=== PATIENT | female | born 1955 | race Caucasian/White ===

== ENCOUNTER 2020-02-19 06:17 | Outpatient (CLI) | payer OTHER, SELFPAY ==
[2020-02-19 18:34] LABS: SARS-CoV-2 RNA PCR Negative
== END 2020-02-19 06:18 | disposition home or self-care (01) ==
LOC: ANHCOVIDDT 06:19
PROVIDERS: Visit Provider Internal Medicine Gastroenterology
DX: Z01.818 Encounter for other preprocedural examination (principal); Z11.59 Encounter for screening for other viral diseases
CPT/HCPCS: 87635; C9803; U0003

== ENCOUNTER 2020-02-21 03:02 | Day surgery (SDC) | payer OTHER, SELFPAY ==
[2020-02-18 09:20] VITALS: BMI 27.5
[2020-02-21 09:02] VITALS: BP 120/75; PULSE 69; RESP 16; TEMP 36.4; O2SAT 99
--- NOTE | 2020-02-21 09:05 | P.PNAN_ITS ---
Anes - Initial Pre Proc Eval Procedure: Operation Date: 02/21/20 09:30 Proposed Procedures p Screening Colonoscopy - Dima Pelaez MD Date/Time: 02/21/20 09:05 Surgeon: Dima Pelaez MD Pre Op Diagnosis: Neoplasm Screening Patient Data Age: 64 Gender: F Height: 5 ft 5 in Weight: 76.1 kg Last Vital Signs Temp 36.4 C 02/21/20 09:02 Pulse 69 02/21/20 09:02 Resp 16 02/21/20 09:02 BP 120/75 02/21/20 09:02 Pulse Ox 99 02/21/20 09:02 Allergies Allergy/AdvReac Type Severity Reaction Status Date / Time No Known Allergies Allergy Unknown Verified 02/18/20 09:09 Home Medications Medication Instructions Recorded Confirmed Type cholecalciferol (vitamin D3) 10 mcg PO DAILY 02/18/20 02/18/20 History [Vitamin D3] Patient hx anesthesia problems: none Family hx anesthesia problems: none [facility] Past Medical History Medical History (Updated 02/21/20 @ 09:05 by Seth Baum MD) Overweight Anes - Eval Final PreProcedure Day of Procedure 02/21/20 09:05 Patient weight: overweight Heart: regular rate and rhythm Lungs: clear to auscultation Airway: Mallampati scale class II Neurological: alert and oriented Last oral intake: >/= 8 hours ASA classification: II Emergent: no Anesthetic plan: proceed Anesthesia type and monitoring: general GIVS and standard monitoring Informed Consent: The patient's anesthetic plan and its attendant risks and benefits were discussed with the patient/family/POA. Questions were solicited and answers provided to the satisfaction of the patient/family/POA.
[2020-02-21] MEDS: LACTATED RINGERS 1,000 ML 150 ML IV CONT (09:06)
--- NOTE | 2020-02-21 09:24 | P.HP_ITS ---
History of Present Illness History of Present Illness Consent: Risks, benefits, and alternatives have been discussed and questions answered. Patient agrees to proceed with procedure. Chief complaint: Neoplasm Screening Narrative: Grecia Salaazr is a 64 year old W female Referred for screening colonoscopy. Patient states he had a colonoscopy 14 years ago which was normal. She is asymptomatic. No family history of colon polyps or colon cancer. [facility], [facility] Past Medical History Medical History (Updated 02/21/20 @ 09:05 by Seth Baum MD) Overweight Meds Home Medications and Allergies Home Medications Medication Instructions Recorded Confirmed Type cholecalciferol (vitamin D3) 10 mcg PO DAILY 02/18/20 02/18/20 History [Vitamin D3] Allergies Allergy/AdvReac Type Severity Reaction Status Date / Time No Known Allergies Allergy Unknown Verified 02/18/20 09:09 Vital Signs Vital Signs - 24 hr 02/21/20 09:02 Temperature 36.4 C Pulse Rate 69 Respiratory Rate 16 Blood Pressure 120/75 Pulse Oximetry 99 Exam Const: Orientation/consciousness: patient oriented x3 Resp: Auscultation: clear to auscultation bilaterally Cardio: Rate: regular rate Rhythm: regular rhythm Heart sounds: no murmurs GI: GI Palp: Yes Soft to palpation, No Tenderness to palpation present (GI), Yes No hepatosplenomegaly present and No Palpable mass present Auscultation: normal bowel sounds Neuro: General: patient oriented x3 and no focal motor deficits Extrem: General: no pedal edema Assessment and Plan Additional Plan Screening colonoscopy in average risk patient
[2020-02-21 10:20] VITALS: BP 89/56; PULSE 63; RESP 14; O2SAT 98
[2020-02-21 10:30] VITALS: BP 93/55; PULSE 63; RESP 15; O2SAT 98
[2020-02-21 10:40] VITALS: BP 100/68; PULSE 64; RESP 15; O2SAT 99
== END 2020-02-21 10:50 | disposition home or self-care (01) ==
PROVIDERS: PCP Family Medicine; Visit Provider Internal Medicine Gastroenterology
PROC: 0DJD8ZZ Inspection of Lower Intestinal Tract, Via Natural or Artificial Opening Endoscopic (ICD-10-PCS; CPT 45378; principal; 2020-02-21 09:30)
DX: Z12.11 Encounter for screening for malignant neoplasm of colon (principal); K64.1 Second degree hemorrhoids; K64.4 Residual hemorrhoidal skin tags
CPT/HCPCS: 45378; J2704; J7120

== ENCOUNTER 2025-04-18 11:49 | Outpatient (CLI) | payer MEDICARE, OTHER, SELFPAY ==
--- OUTSIDE RECORDS SUMMARY | 2025-04-18 11:57 | XMS_ITS | Data Portability ---
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 She states her knee really does not hurt all that much most of the time unless she tries to overdo it then she will have some throbbing and aching. We talked about oral medication certainly this could be helpful let her be a little more active. She would like to try 1 month course of meloxicam will get her set up with this she declined cortisone or further hyaluronic acid. She wants to see how the medication works. I have told her if this does not give her the relief she is looking for then she can either live with it or consider surgical intervention she thinks for the most part she can live with it for a while as the pain is not severe or severely limiting. She voiced understanding agrees above plan I will see her back as needed she will call for any further problems difficulties or questions. She will let us know in 1 month whether not the medication is working if it is working we will give her a refill if not she can discontinue it. [email or web address] Not available 10/25/2023 09:53:25 12/05/2023 12/05/2023 68-year-old female presents for evaluation of her left knee. She has a history of knee osteoarthritis and was previously being seen by Dr. Holder and Jaime ALEXANDER. she has been treated conservatively with physical therapy, cortisone injection, and gel injection. She did not take meloxicam because she does not like to take pills. She also has a history of a tibial plateau fracture fixed with 2 screws in 2007. She reports having minimal pain. She is able to walk and hike up to a mi before the pain limits her. She does report having some feelings of stiffness in the knee, and states that her complains about her walking and has had a TKA, so recommended she get 1 as well. Review of systems per patient questionnaire Physical exam: Nonantalgic gait. She has some tenderness over the medial and lateral joint line. Range of motion 0-130, pain in terminal flexion. positive Juan Pablo's. Stable ligaments. X-rays of the knee were reviewed, demonstrating degenerative changes with joint space narrowing and small osteophytes over the medial compartment. She has a healed lateral tibial plateau fracture with 2 screws with washers in place. She does have knee arthritis, both osteoarthritis and posttraumatic arthritis, but right now she reports she has minimal pain. As such, we discussed that she does not necessarily need surgery, but may continue conservative management if she is okay with her condition right now. She wants some time to think about it. We gave her a set of knee home exercise programs continue doing, and also Voltaren gel written down since she does not like taking oral anti-inflammatori es. She will take some time to think about it and call us back, follow-up p.r.n.. [email or web address] Not available 12/05/2023 13:33:51 Plan of Treatment Reminders Order Date Submit Date Provider Last Modified By Organization Details Last Modified Time Details Appointments None recorded. Lab lipid panel, serum [address] (Lab), [address] [place], [address], 4 08:08:46 TSH, serum or plasma [address] (Lab), [address] [place], [address], 4 08:08:46 CBC 2023 024 [email or web address] (Lab), [address] [place], [address], 4 08:08:46 glycohemog lobin, total, blood 2023 024 [email or web address] (Lab), [address] [place], [address], 4 08:08:46 [facility], [facility] or [facility] [address] [place], [address], 23:36:52 Referral None recorded. Procedures None recorded. Surgeries None recorded. Imaging None recorded. Medication Orders meloxicam 15 mg tablet 2023 024 [email or web address] [id number], [address] [place], [address], 4 10:54:50 Patient TargetsNo targets recorded. Patient Instructions Encounter Date Encounter Id Patient Instructions Last Modified By Organization Details Last Modified Time 03/08/2024 [id number] dementia rating scale-2* [email or web address] Not available 03/08/2024 08:41:09 multi-dimensiona l health assessment questionnaire* Not available 03/08/2024 08:41:12 care plan* Not available 03/08 08:20:23 advance directiv es: care instructions Not available 03/08/2024 08:20:22 advance care planning: care instructions Not available 03/08/2024 08:20:22 [place] Advance Directives Not available 03/08/2024 08:20:23 Personalized [facility] Plan and Screening Recommendations Advance Directives - Do you have one? No Advance Directives - Do we have your advance directive on file in your health record? Primary Prevention/Interven tion (prevents or decreases the chance of common diseases from occurring) Smoking Risk: Non Smoker Alcohol Misuse Screening: Negative Weight: Overweight Physical activity: Need more exercise/physical activity Nutrition: Average Fall Risk (screened today): Low Vaccines Pneumococcal: Recommended today, but you have declined Influenza: Your next one in the fall of this year Chronic Disease Risks Stroke: Low Risk Active diagnosis, Continue current treatment plan Heart Attack: Low risk Active diagnosis, Continue current treatment plan Clogging of the Arteries: Low risk Active diagnosis, Continue current treatment plan Diabetes: Low Risk Active diagnosis, Continue current treatment plan Secondary Prevention/Interven tion (detects treatable diseases before they may cause symptoms, disability, or ) Breast Cancer Screening with mammogram: Recommended today, but you have declined Cervical/Uterine/Ov wilma Cancer Screening: Recommended today, but you have declined Osteoporosis Screening: Recommended today, but you have declined Date Screening Last Performed: Colon Cancer Screening: Colonoscopy Recommended today, but you have declined Date Screening Last Performed: Eye Disease Screening: Recommended today Dementia Risk: Low Depression Screening: Negative Not available 03/08/2024 08:16:18 Reason for Referral None Reported. Results Created Date Observation Date Name Description Value Unit Range Abnormal Flag Note LastModifiedBy Organization Detail LastModifiedTime 09/23/2009/23/2023 URINA LYSIS COMPL ETE/I RIS W/RFX color DARK-Y ELLOW Not Available [facility] (Lab) [address] [place], [address], 09/23/2023 19:46:38 09/23/20 23 09/23/2023 URINA LYSIS COMPL ETE/I RIS W/RFX appear EXTRA TURBID abnormal Not Available [facility] (Lab) [address] [place], [address], 09/23/2023 19:46:38 09/23/20 23 09/23/2023 URINA LYSIS COMPL ETE/I RIS W/RFX specific gravity 1.019 1.001- 1.030 Not Available [facility] (Lab) [address] [place], [address], 09/23/2023 19:46:38 09/23/20 23 09/23/2023 URINA LYSIS COMPL ETE/I RIS W/RFX pH 5.0 pH_un its 5.0-9. 0 Not Available [facility] (Lab) [address] [place], [address], 09/23/2023 19:46:38 09/23/20 23 09/23/2023 URINA LYSIS COMPL ETE/I RIS W/RFX leukocytes >/=500 rosalino/u L negati ve- abnormal Not Available [facility] (Lab) [address] [place], [address], 09/23/2023 19:46:38 09/23/20 23 09/23/2023 URINA LYSIS COMPL ETE/I RIS W/RFX nitrite NEGATI VE negati ve- Not Available [facility] (Lab) [address] [place], [address], 09/23/2023 19:46:38 09/23/20 23 09/23/2023 URINA LYSIS COMPL ETE/I RIS W/RFX protein 50 mg/dL negati ve- abnormal Not Available [facility] (Lab) [address] [place], [address], 09/23/2023 19:46:38 09/23/20 23 09/23/2023 URINA LYSIS COMPL ETE/I RIS W/RFX glucose NORMAL mg/dL normal - Not Available [facility] (Lab) [address] [place], [address], 09/23/2023 19:46:38 09/23/20 23 09/23/2023 URINA LYSIS COMPL ETE/I RIS W/RFX ketones NEGATI VE mg/dL negati ve- Not Available [facility] (Lab) [address] [place], [address], 09/23/2023 19:46:38 09/23/20 23 09/23/2023 URINA LYSIS COMPL ETE/I RIS W/RFX urobilinogen NORMAL mg/dL normal - Not Available [facility] (Lab) [address] [place], [address], 09/23/2023 19:46:38 09/23/20 23 09/23/2023 URINA LYSIS COMPL ETE/I RIS W/RFX bilirubin NEGATI VE mg/dL negati ve- Not Available [facility] (Lab) [address] [place], [address], 09/23/2023 19:46:38 09/23/20 23 09/23/2023 URINA LYSIS COMPL ETE/I RIS W/RFX blood >/=1.0 mg/dL negati ve- abnormal Not Available [facility] (Lab) [address] [place], [address], 09/23/2023 19:46:38 09/23/20 23 09/23/2023 URINA LYSIS COMPL ETE/I RIS W/RFX white blood cells PACKED /i??h pfi?? 0-8 abnormal Not Available [facility] (Lab) [address] [place], [address], 09/23/2023 19:46:38 09/23/20 23 09/23/2023 URINA LYSIS COMPL ETE/I RIS W/RFX white blood cell clumps PACKED FIELD /i??h pfi?? none seen- abnormal Not Available [facility] (Lab) [address] [place], [address], 09/23/2023 19:46:38 09/23/20 23 09/23/2023 URINA LYSIS COMPL ETE/I RIS W/RFX red blood cells 81-100 /i??h pfi?? 0-4 abnormal Not Available [facility] (Lab) [address] [place], [address], 09/23/2023 19:46:38 09/23/20 23 09/23/2023 URINA LYSIS COMPL ETE/I RIS W/RFX bacteria NONE Not Available [facility] (Lab) [address] [place], [address], 09/23/2023 19:46:38 09/23/20 23 09/23/2023 URINA LYSIS COMPL ETE/I RIS W/RFX squamous epithelial NONE /i??l pfi?? abnormal Not Available [facility] (Lab) [address] [place], [address], 09/23/2023 19:46:38 09/23/20 23 09/23/2023 CULTU RE URINE urc ===== ===== ===== ===== ===== ===== ===== ===== ===== ===== ===== ===== ===== ===== ===== ===== ===== ===== ===== ===== ===== ===== ===== ===== CULTU RE NO.: [id number] Exam Statu s: Final Exam Type: CULTU RE URINE ===== ===== ===== ===== ===== ===== ===== ===== ===== ===== ===== ===== ===== ===== ===== ===== ===== ===== ===== ===== ===== ===== ===== ===== Cultu re Repor t: Organ ism #01 Esche tierra a coli (escc ol) Antib iotic s escco l Achie vable Achie vable (01) Dosag e Serum Level Urine Level mcg/m l mcg/m l Mary kristen <=2 S 021T Ampic illin >=32 R 021T Ampic illin /Sulb actam >=32 R 021T Cefaz hailey 16 I 021T Cefep leann <=1 S 021T Cefox itin <= 4 S 021T Ceftr iaxon e <=1 S 021T Cipro floxa kristen <=0.2 5 S 021T ESBL NEG - 021T Genta micin >=16 R 021T Levof loxac in <=0.1 2 S 021T Merop enem <=0.2 5 S 021T Nitro furan toin <=16 S 000T Piper acill in./T azaba <=4 S 021T Tobra mycin 8 I 021T Trmet hopri m.Sul fa >=320 R 021T rt - Test Card Code AST-G N 021T o2 - Final Organ ism ESCHE R 021T af - Antib iotic Fami TRIME T 021T af - Antib iotic Famil y Na ap - Pheno type Name RESIS T 021T ap - Pheno type Name Not Available [facility] (Lab) [address] [place], [address], 09/26/2023 08:03:27 09/23/20 23 09/23/2023 urina lysis , dipst ick Leukocytes (reference range: negative rosalino/ l) Large Not Available [address], [address], 09/23/2023 10:17:48 09/23/20 23 09/23/2023 urina lysis , dipst ick Nitrite (reference rage: negative mg/dl) negati ve Not Available [address], [place], [address], 09/23/2023 10:17:48 09/23/20 23 09/23/2023 urina lysis , dipst ick Urobilinogen (reference range: 0.2-1 mg/dl) 1 Not Available [address], [place], [address], 09/23/2023 10:17:48 09/23/20 23 09/23/2023 urina lysis , dipst ick Protein (reference range: negative mg/dl) Large Not Available [address], [place], [address], 09/23/2023 10:17:48 09/23/20 23 09/23/2023 urina lysis , dipst ick pH (reference range: 5-7) 5.0 Not Available [address], [place], [address], 09/23/2023 10:17:48 09/23/20 23 09/23/2023 urina lysis , dipst ick Blood (reference range: negative Carmelo/ l) Modera te Not Available [address], [place], [address], 09/23/2023 10:17:48 09/23/20 23 09/23/2023 urina lysis , dipst ick Specific [place] (reference range: 1.005-1.030) 1.030 Not Available [address], [place], [address], 09/23/2023 10:17:48 09/23/20 23 09/23/2023 urina lysis , dipst ick Ketone (reference range: negative mg/dl) Negati ve Not Available [address], [place], [address], 09/23/2023 10:17:48 09/23/20 23 09/23/2023 urina lysis , dipst ick Bilirubin (reference range: negative mg/dl) Negati ve Not Available [address], [place], [address], 09/23/2023 10:17:48 09/23/20 23 09/23/2023 urina lysis , dipst ick Glucose (reference range: negative mg/dl) Negati ve Not Available [address], [place], [address], 09/23/2023 10:17:48 09/23/20 23 09/23/2023 urina lysis , dipst ick Appearance Cloudy Not Available [address], [place], [address], 09/23/2023 10:17:48 09/23/2009/23/2023 urina lysis , dipst ick Color Yellow Not Available [address], [place], [address], 09/23/2023 10:17:48 05/22/20 24 05/22/2024 urina lysis , dipst ick Leukocytes (reference range: negative rosalino/ l) Large Not Available [address], [place], [address], 05/22/2024 12:18:24 05/22/20 24 05/22/2024 urina lysis , dipst ick Nitrite (reference rage: negative mg/dl) negati ve Not Available [address], [place], [address], 05/22/2024 12:18:24 05/22/20 24 05/22/2024 urina lysis , dipst ick Urobilinogen (reference range: 0.2-1 mg/dl) 0.2 Not Available [address], [place], [address], 05/22/2024 12:18:24 05/22/20 24 05/22/2024 urina lysis , dipst ick Protein (reference range: negative mg/dl) Large Not Available [address], [place], [address], 05/22/2024 12:18:24 05/22/20 24 05/22/2024 urina lysis , dipst ick pH (reference range: 5-7) 5.5 Not Available [address], [place], [address], 05/22/2024 12:18:24 05/22/20 24 05/22/2024 urina lysis , dipst ick Blood (reference range: negative Carmelo/ l) Large Not Available [address], [place], [address], 05/22/2024 12:18:24 05/22/20 24 05/22/2024 urina lysis , dipst ick Specific [place] (reference range: 1.005-1.030) 1.025 Not Available [address], [place], [address], 05/22/2024 12:18:24 05/22/20 24 05/22/2024 urina lysis , dipst ick Ketone (reference range: negative mg/dl) Negati ve Not Available [address], [place], [address], 05/22/2024 12:18:24 05/22/20 24 05/22/2024 urina lysis , dipst ick Bilirubin (reference range: negative mg/dl) Negati ve Not Available [address], [place], [address], 05/22/2024 12:18:24 05/22/20 24 05/22/2024 urina lysis , dipst ick Glucose (reference range: negative mg/dl) Negati ve Not Available [facility] [address], [place], [address], 05/22/2024 12:18:24 05/22/2005/22/2024 urina lysis , dipst ick Appearance Cloudy Not Available [address], [place], [address], 05/22/2024 12:18:24 05/22/20 24 05/22/2024 urina lysis , dipst ick Color Yellow Not Available [address], [place], [address], 05/22/2024 12:18:24 Result Notes None recorded. Problems Name Problem SNOMED Code Status Onset Date Resolution Date Notes Provider Name and Address Organization Details Recorded Time Pain in lower limb 94119424 Active 2018 Not Available [facility] 3 06:43:50 Wears glasses 064070976 Active 2018 Not Available [facility] 3 06:43:50 Leukorrhea 729596151 Active Not Available [facility] 3 06:43:50 External hemorrhoid s 24907107 Active Not Available [facility] 3 06:43:50 Headache 65458934 Active 2018 Not Available [facility] 3 06:43:50 Perianal dermatitis 963661363 Active Not Available [facility] 3 06:43:50 Skin problem 314415268 Active 2018 Not Available [facility] 3 06:43:50 Knee pain Active Not Available [facility] 3 06:43:50 Arthritis 9088290 Active 2018 Not Available [facility] 3 06:43:50 Obesity 748791919 Active 2018 Not Available [facility] 3 06:43:50 Chronic kidney disease stage 1 556840182 Active Not Available [facility] 3 06:43:50 Fecal impaction 32504955 Active Not Available [facility] 3 06:43:50 Dysuria 33246645 Active Not Available [facility] 3 06:43:50 Hand pain 53189425 Active Not Available [facility] 3 06:43:50 Hyperlipid emia 70321900 Active Not Available [facility] 3 06:43:50 Hypercalce getachew 42586414 Active Not Available [facility] 3 06:43:50 Hemorrhoid s 09405573 Active Not Available [facility] 3 06:43:51 Hyperglyce getachew 57085422 Active Not Available [facility] 3 06:43:51 Internal hemorrhoid s 50759248 Active Not Available [facility] 3 06:43:51 Pain of left knee joint 9947512876544 07 Active 2022 CATHERINE Rivera [address] [facility], [facility] [address], [place], [address] , [place] [facility] 3 14:02:05 Osteoarthr itis of knee 399969743 Active 2022 Karen Ruffin RMA null, [place] [facility] 3 09:03:41 Sprain of left ankle 3306469493983 9105 Active 2022 Karen Ruffin RMA null, [place] [facility] 3 09:03:54 Pain in left foot 2723245898134 07 Active 2022 Karen Ruffin RMElen null, [place] [facility] 3 09:04:05 Pain of right hip joint 5449654889626 02 Active 2022 Karen Ruffin RMA null, [place] [facility] 3 09:04:23 Osteoarthr itis of left knee joint 5794098164228 09 Active 2022 Neida hodge, [place] [facility] 3 09:33:26 Acute urinary tract infection 614035931 Active 2022 Tyrone Robles MD [address] [facility] [address], [place], [address] , [employer] [facility] 11:40:34 Notes:back/neck problems, jose wel problems, numbness or tingling, depression/anxiety, chest pain or pressure, swollen or painful joints, difficulty hearing, Problem Notes None recorded. Procedures Surgical History Date Name Laterality Status Provider Name and Address Organization Details Recorded Time 03/08/20 24 Medicare Wellness CPT Code, subsequent completed Caron Wallace RN [facility] [email or web address] 03/08/2024 07:58:09 03/15/20 23 Cortisone Injection (Dequervains/ Greater Trochantric/ Lateral Epicondylitis/ Shoulder/ Subacromial Space/ Knee or Trigger Finger) completed CATHERINE Rivera [address], [place], [address], [employer] 03/14/2023 14:01:53 10/05/20 22 Most Recent Bone Density completed Not Available [facility] 12/08/2022 06:40:53 05/08/20 21 Date of Last Colonoscopy completed Not Available [facility] 12/08/2022 06:40:53 Imaging Results None recorded. Procedure Notes None recorded. Medical Equipment None Reported. Allergies No known drug allergies Medications Name Sig Start Date Stop Date Status Note LastModified by Organization Details LastModified Time ivermecti n 3 mg tablet TAKE 4 TABLETS BY MOUTH FOR ONE DOSE AND REPEAT IN 2 WEEKS 04/26 completed Not Available Not Available Not Available Anusol-HC 2.5 % rectal cream with applicato r Insert 1 applicat ion twice a day by rectal route for 7 days. active Not Available Not Available No t Available valacyclo vir 1 gram tablet 05/03 completed Not Available Not Available Not Available meloxicam 15 mg tablet TAKE 1 TABLET BY MOUTH EVERY DAY WITH MEALS FOR 30 DAYS 2023 active Not Available Not Available Not Avai lable Medrol (Fabio) 4 mg tablets in a dose pack Take 6 tabs on day one, 5 tabs on day two, 4 tabs on day three, 3 tabs on day four, 2 tabs on day five, 1 tab on day six. 04/26 completed Not Available Not Available Not Available prednison e 20 mg tablet PLEASE SEE ATTACHED FOR DETAILED DIRECTIO NS 04/26 completed Not Available Not Available Not Available doxycycli ne hyclate 50 mg capsule 07/21 completed Not Available Not Available Not Available clotrimaz ole 1 % vaginal cream Insert 1 applicat orful every day by vaginal route at bedtime for 7 days. active Not Available Not Available No t Available triamcino lone acetonide 0.5 % topical ointment APPLY TO AFFECTED AREA TWICE A DAY 06/28 completed Not Available Not Available Not Available ciproflox acin 250 mg tablet Take 1 tablet every 12 hours by oral route for 7 days. 09/28 completed Not Available Not Available Not Available triamcino lone acetonide 0.1 % topical cream APPLY A THIN COAT TO AFFECTED AREA TOPICALL Y TWICE A DAY 04/26 completed Not Available Not Available Not Available Depo-Medr ol 80 mg/mL suspensio n for injection Take 40 mg every day by injectio n route. 09/28 completed [facility]-0009 [id number] 02 lot [id number] exp 05/25 Not Available Not Available Not Available nystatin- triamcino lone 100,000 unit/gram -0.1 % topical ointment APPLY TO THE AFFECTED AREA(S) BY TOPICAL ROUTE 2 TIMES PER DAY prn rash active Not Available Not Available No t Available terbinafi ne HCl 250 mg tablet 12/31 completed Not Available Not Available Not Available Xylocaine 10 mg/mL (1 %) injection solution Take 2 mL by injectio n route. 04/26 completed Not Available Not Available Not Available Fleet Bisacodyl 10 mg/30 mL enema Insert 10 mg every day by rectal route as needed. active Not Available Not Available No t Available triamcino lone acetonide 40 mg/mL suspensio n for injection Take 2 mL by injectio n route. 04/26 completed Not Available Not Available Not Available econazole nitrate 1 % topical cream 12/31 completed Not Available Not Available Not Available diphenhyd ramine 25 mg capsule Take 1 capsule every 4-6 hours by oral route as needed. 12/31 completed Not Available Not Available Not Available olopatadi ne 0.1 % eye drops 12/31 completed Not Available Not Available Not Available misoprost ol 200 mcg tablet Take 2 tablets by oral route at bedtime for 1 day. 01/26 completed Not Available Not Available Not Available diclofena c 50 mg-misopr ostol 200 mcg tablet,im med.and delayed release Take 1 tablet twice a day by oral route with meals. 09/28 completed Not Available Not Available Not Available diclofena c sodium 75 mg tablet,de layed release TAKE 1 TABLET BY MOUTH TWICE A DAY 06/28 completed Not Available Not Available Not Available nystatin 100,000 unit/gram topical powder APPLY TO THE AFFECTED AREA(S) BY TOPICAL ROUTE 2 TIMES PER DAY 12/31 completed Not Available Not Available Not Available ibuprofen 600 mg tablet Take 1 tablet 3 times a day by oral route as needed for 30 days. active Not Available Not Available No t Available scopolami ne 1 mg over 3 days transderm al patch APPLY 1 PATCH EVERY 3 DAYS NEEDED 04/26 completed Not Available Not Available Not Available Vitamin D2 1,250 mcg (50,000 unit) capsule 12/31 completed Not Available Not Available Not Available clotrimaz ole 1 % topical cream APPLY TO THE AFFECTED AND SURROUND ING AREAS OF SKIN BY TOPICAL ROUTE 2 TIMES PER DAY IN THE MORNING AND EVENING active Not Available Not Available No t Available metronida zole 0.75 % topical gel APPLY A THIN LAYER TO THE AFFECTED AREA(S) BY TOPICAL ROUTE 2 TIMES PER DAY IN THE MORNING AND EVENING active Not Available Not Available No t Available amoxicill in 875 mg-potass ium clavulana te 125 mg tablet TAKE 1 TABLET BY MOUTH TWICE A DAY 06/28 completed Not Available Not Available Not Available Premarin 0.625 mg/gram vaginal cream Insert 0.5 applicat orsful 3 times a week by vaginal route. active Not Available Not Available No t Available nitrofura ntoin monohydra te/macroc rystals 100 mg capsule Take 1 capsule every 12 hours by oral route for 5 days. 2023 active Not Available Not Available Not Avai lable metronida zole 1 % topical gel 07/21 completed Not Available Not Available Not Available nystatin 12/27 completed nystatin powder 60 mg 2 x daily Not Available Not Available Not Available Suprep Bowel Prep Kit 17.5 gram-3.13 gram-1.6 gram oral solution 04/26 completed Not Available Not Available Not Available Linzess 145 mcg capsule Take 1 capsule every day by oral route. active Not Available Not Available No t Available Vitals Date Recorded Body height Body mass index (BMI) Body weight Provider Name and Address Organization Details Last Updated DateTime 10/25/2023 165.1 cm 30.8 kg/m2 39839.59 g Coco Carr CNA [facility] [employer] [facility] 10/25/2023 09:29:37 Date Recorded Body height Body mass index (BMI) Body weight Provider Name and Address Organization Details Last Updated DateTime 12/05/2023 162.56 cm 30.9 kg/m2 08854.63 g Brigitte Narendra [facility] [employer] [facility] 12/05/2023 12:14:43 Date Recorded Body height Body mass index (BMI) Body weight Body temperature Heart rate Oxygen saturation Oxygen saturation in Arterial blood by Pulse oximetry Systolic And Diastolic Provider Name and Address Organization Details Last Updated DateTime 162.56 cm 31.9 kg/m2 27897.1 8 g 96.9 [degF] 73 /min 98 % 98 % 132/88 mm[Hg] Caron Wallace RN [facility] [employer] [facility] 08:04:02 Date Recorded Body height Provider Name an d Address Organization Details Last Updated DateTime 05/22/2024 162.56 cm Jocelyn Putnam RN [facility] [employer] [facility] 05/22/2024 15:35:10 Date Recorded Body height Provider Name an d Address Organization Details Last Updated DateTime 09/23/2023 167.64 cm Jocelyn Putnam RN [facility] [employer] [facility] 09/23/2023 11:15:36 Social History Question Answer Notes LastModified by Organization Details LastModified Time Tobacco Smoking Status Never Smoker Not Available [employer] 12/08/2022 06:40:38 Do You Have An Advance Directive? No Packet Of Information MIGRATION.0301 [id number] Information not available 12/08/2022 Are You Blind Or Do You Have Difficulty Seeing? No Glasses For Reading MIGRATION.030 [id number] Information not available 12/08/2022 What Is Your Level Of Caffeine Consumption? Occasional MIGRATION.0301 [id number] Information not available 12/08/2022 How Much Tobacco Do You Chew? None MIGRATION.0301 [id number] Information not available 12/08/2022 In The 14 Days Before Symptom Onset, Have You Had Close Contact With A Laboratory-confi rmed COVID-19 While That Case Was Ill? No MIGRATION.0301 [id number] Information not available 12/08/2022 In The 14 Days Before Symptom Onset, Have You Had Close Contact With A Person Who Is Under Investigation For COVID-19 While That Person Was Ill? No MIGRATION.0301 626204 Information not available 12/08/2022 Are You Deaf Or Do You Have Serious Difficulty Hearing? No MIGRATION.0301 750322 Information not available 12/08/2022 What Type Of Diet Are You Following? REGULAR MIGRATION.0301 [id number] Information not available 12/08/2022 Do You Use Insect Repellent Routinely? Yes MIGRATION.0301 183583 Information not available 12/08/2022 What Was The Date Of Your Most Recent Tobacco Screening? 07/20/2022 MIGRATION.0301 604782 Information not available 12/08/2022 Have You Ever Been Counseled For Unhealthy Alcohol Use? No MIGRATION.0301 611250 Information not available 12/08/2022 Do You Have Smoke And Carbon Monoxide Detectors In Your Home? Yes MIGRATION.0301 963553 Information not available 12/08/2022 How Much Tobacco Do You Smoke? No MIGRATION.0301 368137 Information not available 12/08/2022 Do You Use Sunscreen Routinely? Yes MIGRATION.0301 015660 Information not available 12/08/2022 Do You Have Difficulty Walking Or Climbing Stairs? No MIGRATION.0301 711040 Information not available 12/08/2022 Sex: Unknown Functional Status Question Answer Note LastModified by Organizat ion Details LastModified Time Do you use any illicit or recreational drugs? No MIGRATION.754995 9524 Information not available 12/08/2022 Do you or have you ever used any other forms of tobacco or nicotine? No MIGRATION.546385 3964 Information not available 12/08/2022 What is your level of alcohol consumption? Occasional MIGRATION.595404 6209 Information not available 12/08/2022 Do you or have you ever used smokeless tobacco? Never used smokeless tobacco MIGRATION.405405 5623 Information not available 12/08/2022 Do you have transportation difficulties? No MIGRATION.210830 2390 Information not available 12/08/2022 Are you able to walk? YESWOREST MIGRATION.820248 5158 Information not available 12/08/2022 Do you have difficulty doing errands alone? No MIGRATION.082238 9907 Information not available 12/08/2022 Are you able to care for yourself? 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 No MIGRATION.459603 1445 Information not available 12/08/2022 Do you or have you ever used e-cigarettes or vape? Never used electronic cigarettes MIGRATION.245636 4159 Information not available 12/08/2022 What is your exercise level? Moderate MIGRATION.850971 5503 Information not available 12/08/2022 Mental Status Question Answer Note LastModified by Organizat ion Details LastModified Time Do you feel stressed (tense, restless, nervous, or anxious, or unable to sleep at night)? [id number] MIGRATION.[id number] 26 Information not available 12/08/2022 Do you have difficulty concentrating, remembering or making decisions? No MIGRATION.10604199 26 Information not available 12/08/2022 Family History Relationship Description Onset Age of this Age Resolved Age Notes LastModified by Organization Details LastModified Time Maternal Grandfather Heart disease Not available 2022 09:16:00 Mother Family history of malignant neoplasm [email or web address] Not available 2022 09:16:08 Notes:cancer - mother Medical History Condition Response ARTHRITIS Y Gynecological History Statement/Question Response Date of Last Colonoscopy 05/08/2021 Most Recent Bone Density 10/05/2022 Obstetrics History GPAL:G 0 P 0 0 0 0 Immunizations Vaccine Type Date Status Note Provider Nam e and Address Organization Details Recorded Time Influenza, split virus, trivalent, PF 4 completed Allyssa Chance, [place] null, [place] - [facility] 04/26/2023 08:08:23 SARS-COV-2 (COVID-19) vaccine, UNSPECIFIED 1 completed Not Available [facility] 12/08/2022 06:47:36 COVID-19, mRNA, LNP-S, PF, 100 mcg/0.5mL dose or 50 mcg/0.25mL dose 1 completed RENZO Das, [facility] [email or web address] 04/26/2023 08:08:23 Influenza, split virus, quadrivalent, PF 0 completed Not Available [facility] 12/08/2022 06:47:36 Influenza, split virus, quadrivalent, PF 8 completed Not Available [facility] 12/08/2022 06:47:36 Influenza, split virus, quadrivalent, PF 7 completed Not Available [facility] 12/08/2022 06:47:36 Influenza, split virus, quadrivalent, preservative 6 completed Not Available [facility] 12/08/2022 06:47:36 Influenza, split virus, quadrivalent, PF 5 completed Not Available [facility] 12/08/2022 06:47:36 Tdap 4 completed MONSE Uribe [address] [place] [address], [id number], [facility] [email or web address] 03/08/2024 15:35:19 Past Encounters Encounter ID Performer Location Encounter Start Date Encounter Closed Date Diagnosis/Indication Diagnosis SNOMED-CT Code Diagnosis ICD10 Code Diagnosis Note [id number] GISELE Potter [facility] [place] [address] [facility] [address] [place] [address] 12/23/2020 00:00:00 12/23/2020 08:54:42 [id number] Tyrone Robles MD [facility] [place] [address] [facility] [address] [place] [address] 05/06/2021 00:00:00 05/06/2021 09:37:58 [id number] Tyrone Robles MD [facility] [place] [address] [facility] [address] [place] [address] 06/02/2021 00:00:00 06/03/2021 08:04:57 [id number] CATHERINE Rivera [facility] [place] [address] [facility] [address] [place] [address] 07/21/2022 00:00:00 07/21/2022 12:35:35 [id number] Tyrone Robles MD [facility] Primary [facility] [place] [address] [facility] [address] [place] [address] 10/05/2022 00:00:00 10/05/2022 18:49:31 [id number] CATHERINE Rivera [facility] Primary [facility] [place] [address] [facility] [address] [place] [address] 10/29/2022 00:00:00 10/29/2022 08:28:27 [id number] CATHERINE Rivera [facility] [place] [address] [place] [address] [address] [place] [address] 11/12/2022 00:00:00 11/12/2022 08:24:40 [id number] Tyrone Robles MD [facility] Primary [facility] [place] [address] [facility] [address] [place] [address] 03/15/2023 08:28:53 03/15/2023 08:51:44 Pain of left knee joint 2650057498 81853 M25.562 Injection into left knee, pt. tolerated well. Consent form signed.Pt. is aware of signs/symp toms of infection. [id number] MONSE Uribe [facility] Primary [facility] [place] [address] [facility] [address] [place] [address] 04/26/2023 07:53:58 04/26/2023 08:35:37 Pain of left knee joint 6957448430 72232 M25.562 Has been a recurrent issue for this pt. Xray positive for degenerati ve changes. Has not had relief from 2nd steroid injection in March. Does not like to take medication s. Would like to try ortho referral. [id number] Ajit Holder MD [address] [place] [address] 05/03/2023 08:58:45 05/03/2023 09:43:51 Pain of left knee joint 6403679269 69059 M25.562 Osteoarthr itis of left knee joint 0226783862 30753 M17.12 [id number] Ajit Holder MD [facility]_[address] [address] 05/31/2023 09:06:41 05/31/2023 09:36:46 Pain of left knee joint 9912251810 91760 M25.562 Osteoarthr itis of left knee joint 4910999841 26117 M17.12 [id number] Ajit Holder MD [facility]_[address] [address] 06/28/2023 08:54:12 06/28/2023 09:19:30 Osteoarthritis of left knee joint 2712718548 70653 M17.12 [id number] Tyrone Robles MD [facility] [place] [address] [place] [address] 09/23/2023 10:53:45 09/23/2023 11:40:43 [id number] Jose Rich MD [address] [address] 10/25/2023 09:24:18 10/25/2023 10:38:48 Osteoarthritis of left knee joint 4208664980 20233 M17.12 Pain of le ft knee joint 0803765049 28258 M25.420 [id number] Danny Pollard MD [facility]_[address] [address] 12/05/2023 12:13:16 12/05/2023 13:31:29 Osteoarthritis of left knee joint 8204307897 35004 M17.12 [id number] MONSE Uribe [facility] [place] [address] [place] [address] 03/08/2024 07:55:34 03/08/2024 08:36:27 Adult health examination 807846671 Z00.00 Screening for disorder 052179243 Z13.9 Diabetes m ellitus screening 497165434 Z13.1 Hyperlipid emia screening 259202954 Z13.220 Thyroid di sorder screening 546788567 Z13.29 Anemia screening 3333304 07 Z13.0 Administra tion of tetanus vaccine 432381462 Z23 [id number] CATHERINE Boateng [facility] [place] [address] [facility] [address] [place] [address] 05/22/2024 15:28:39 05/22/2024 15:52:17 Health Concerns Section Related Observation LastModified by Organization Detai ls LastModified Time None Recorded Concern Status LastModified by Organization Details LastModified Time None Recorded Advance Directives Directive N: Packet of information Payers Insurance Date Sequence Insurance Name Policy Number Policy Conrad Covered Member ID Conrad Member ID Guarantor Name 05/22/2024 [facility] (MEDICARE REPLACEMENT/A DVANTAGE - HMO) [id number] Grecia Myrick Martin [id number] Grecia Myrick Martin 05/22/2024 2 [employer] ( - MEDICARE SUPPLEMENT) Grecia Martin [id number] Grecia Salazar Notes Date Note Type Note Provider Name and Address Organization Details Recorded Time 10/25/2023 text/html Patient returns complaining of left knee pain that comes and goes. Today's a pretty good day for her. She states that about a 3 on a scale 1-10 it does not really hurt at rest but she certainly cannot stand or walk for long periods this causes aching pain. She will take some occasional Tylenol at night if it is throbbing but for the most part does not have pain at rest. She states many years ago she had a fracture of the tibia and had to have 2 screws inserted she has developed osteoarthritis over time. She has tried cortisone hyaluronic acid injections physical therapy and activity modification her symptoms continue. She comes in today to talk about treatment options from here we talked in detail today about total knee arthroplasty or further conservative measures. She states she is not really ready for total knee arthroplasty as her knee really does not bother her that much unless she tries to overdo it. She does have significant primary osteoarthritis and varus deformity. Denies any new symptoms no new trauma or injury no erythema effusion or signs of infection today. CATHERINE Barron [address] [facility], [place] [address], [place], [address], [employer] 10/25/2023 09:53:42 03/08/2024 text/html here for medicar e wellness MONSE Uribe [address] [facility], [facility] [address], [place], [address], [employer] 03/08/2024 15:36:04 OBGyn Episode No OBEpisode recorded.
--- OUTSIDE RECORDS SUMMARY | 2025-04-18 11:57 | XMS_ITS | Data Portability ---
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 Role Phone WAI MARCH Primary Care Provider Assessment Encounter Date Assessment Date Assessment LastModified by Organization Details LastModified Time 08/31/2024 08/31/2024 healthy lifestyle care instructions obtain old records because she says she just recently had some blood work she will see me in 6 months we will obtain her mammogram and colonoscopy reports [email or web address] Not available 09/16/2024 21:35:01 03/01/2025 03/01/2025 Orthopedic referral blood work 6 months follow up healthy lifestyle care instructions [email or web address] Not available 03/01/2025 11:16:45 Plan of Treatment Reminders Order Date Submit Date Provider Last Modified By Organization Details Last Modified Time Details Appointments ANY 15 2024 09:15A M Wai March MD Not available Not available Not available Lab CBC w/ auto diff 2024 025 DA LABJORGE, Kilo [facility], [address], [place], [address], 03/02/2025 08:22:20 lipid panel, serum 2024 025 DA HUERTA, [facility], [address], [place], [address], 03/02/2025 08:22:18 CMP, serum or plasma 2024 025 DA HUERTA, [address] [facility], [address], [place], [address], 03/02/2025 08:22:19 Referral orthopedi c surgeon referral 2024 025 DA Rich, [address], [address], [place], [address], 04/15/2025 12:31:47 Procedures None recorded. Surgeries None recorded. Imaging None recorded. Medication Orders None recorded. Patient TargetsNo targets recorded. Patient Instructions Encounter Date Encounter Id Patient Instructions Last Modified By Organization Details Last Modified Time 08/31/2024 [id number] A healthy lifestyle: care instructions [email or web address] Not available 08/31/2024 14:35:36 03/01/2025 [id number] A healthy lifestyle: care instructions [email or web address] Not available 03/01/2025 12:00:24 Reason for Referral Orthopedic Surgeon Referral for Pain of knee region Referring Physician: Wai March, Internal Medicine, Encounter Date: 03/01/2025 Results Created Date Observation Date Name Description Value Unit Range Abnormal Flag Note LastModifiedBy Organization Detail LastModifiedTime 03/01/2003/02/2025 LIPID PANEL cholesterol, total 228 mg/dL 100-19 9 above high normal Not Available [facility] ([facility]) [address] [place], [address], 03/02/2025 08:22:18 03/01/2003/02/2025 LIPID PANEL triglyceride s 157 mg/dL 0-149 above high normal Not Available [facility] ([facility]) [address] [place], [address], 03/02/2025 08:22:18 03/01/20 25 03/02/2025 LIPID PANEL HDL cholesterol 47 mg/dL >39 Not Available [facility] ([facility]) [address] [place], [address], 03/02/2025 08:22:18 03/01/20 25 03/02/2025 LIPID PANEL VLDL cholesterol elham 28 mg/dL 5-40 Not Available [facility] ([facility]) [address] [place], [address], 03/02/2025 08:22:18 03/01/20 25 03/02/2025 LIPID PANEL LDL chol calc ([facility]) 153 mg/dL 0-99 above high normal Not Available [facility] ([facility]) [address] [place], [address], 03/02/2025 08:22:18 03/01/20 25 03/02/2025 COMP. METAB OLIC PANEL (14) glucose 106 mg/dL 70-99 above high normal Not Available [facility] ([facility]) [address] [place], [address], 03/02/2025 08:22:19 03/01/20 25 03/02/2025 COMP. METAB OLIC PANEL (14) BUN 11 mg/dL 8-27 Not Available [facility] ([facility]) [address] [place], [address], 03/02/2025 08:22:19 03/01/20 25 03/02/2025 COMP. METAB OLIC PANEL (14) creatinine 1.11 mg/dL 0.57-1 .00 above high normal Not Available [facility] ([facility]) [address] [place], [address], 03/02/2025 08:22:19 03/01/20 25 03/02/2025 COMP. METAB OLIC PANEL (14) eGFR 54 mL/mi n/1.7 3 >59 below low normal Not Available [facility] ([facility]) [address] [place], [address], 03/02/2025 08:22:19 03/01/20 25 03/02/2025 COMP. METAB OLIC PANEL (14) BUN/creatini ne ratio 10 12-28 below low normal Not Available [facility] ([facility]) [address] [facility] [place], [address], 03/02/2025 08:22:19 03/01/20 25 03/02/2025 COMP. METAB OLIC PANEL (14) sodium 142 mmol/ L 134-14 4 Not Available [facility] ([facility]) [address] [place], [address], 03/02/2025 08:22:19 03/01/20 25 03/02/2025 COMP. METAB OLIC PANEL (14) potassium 4.9 mmol/ L 3.5-5. 2 Not Available [facility] ([facility]) [address] [place], [address], 03/02/2025 08:22:19 03/01/20 25 03/02/2025 COMP. METAB OLIC PANEL (14) chloride 102 mmol/ L 96-106 Not Available [facility] ([facility]) [address] [place], [address], 03/02/2025 08:22:19 03/01/20 25 03/02/2025 COMP. METAB OLIC PANEL (14) carbon dioxide, total 24 mmol/ L 20-29 Not Available [facility] ([facility]) [address] [facility] [place], [address], 03/02/2025 08:22:19 03/01/20 25 03/02/2025 COMP. METAB OLIC PANEL (14) calcium 10.1 mg/dL 8.7-10 .3 Not Available [facility] ([facility]) [address] [place], [address], 03/02/2025 08:22:19 03/01/20 25 03/02/2025 COMP. METAB OLIC PANEL (14) protein, total 7.1 g/dL 6.0-8. 5 Not Available [facility] ([facility]) [address] [facility] [place], [address], 03/02/2025 08:22:19 03/01/20 25 03/02/2025 COMP. METAB OLIC PANEL (14) albumin 4.7 g/dL 3.9-4. 9 Not Available [facility] ([facility]) [address] [facility] [place], [address], 03/02/2025 08:22:19 03/01/20 25 03/02/2025 COMP. METAB OLIC PANEL (14) globulin, total 2.4 g/dL 1.5-4. 5 Not Available [facility] ([facility]) [address] [facility] [place], [address], 03/02/2025 08:22:19 03/01/20 25 03/02/2025 COMP. METAB OLIC PANEL (14) bilirubin, total 0.5 mg/dL 0.0-1. 2 Not Available [facility] ([facility]) [address] [facility] [place], [address], 03/02/2025 08:22:19 03/01/20 25 03/02/2025 COMP. METAB OLIC PANEL (14) alkaline phosphatase 126 IU/L 44-121 above high normal Not Available [facility] ([facility]) [address] [place], [address], 03/02/2025 08:22:19 03/01/20 25 03/02/2025 COMP. METAB OLIC PANEL (14) AST (SGOT) 14 IU/L 0-40 Not Available [facility] ([facility]) [address] [place], [address], 03/02/2025 08:22:19 03/01/20 25 03/02/2025 COMP. METAB OLIC PANEL (14) ALT (SGPT) 11 IU/L 0-32 Not Available [facility] ([facility]) [address] [place], [address], 03/02/2025 08:22:19 03/01/20 25 03/02/2025 CBC WITH DIFFE RENTI AL/PL ATELE T WBC 6.3 x10e3 /uL 3.4-10 .8 Not Available [facility] ([facility]) [address] [facility], [place], [address], 03/02/2025 08:22:20 03/01/20 25 03/02/2025 CBC WITH DIFFE RENTI AL/PL ATELE T RBC 5.27 x10e6 /uL 3.77-5 .28 Not Available [facility] ([facility]) [address] [facility], [place], [address], 03/02/2025 08:22:20 03/01/2003/02/2025 CBC WITH DIFFE RENTI AL/PL ATELE T hemoglobin 15.4 g/dL 11.1-1 5.9 Not Available [facility] ([facility]) [address] [place], [address], 03/02/2025 08:22:20 03/01/2003/02/2025 CBC WITH DIFFE RENTI AL/PL ATELE T hematocrit 48.2 % 34.0-4 6.6 above high normal Not Available [facility] ([facility]) [address] [place], [address], 03/02/2025 08:22:20 03/01/2003/02/2025 CBC WITH DIFFE RENTI AL/PL ATELE T MCV 92 fL 79-97 Not Available [facility] ([facility]) [address] [place], [address], 03/02/2025 08:22:20 03/01/2003/02/2025 CBC WITH DIFFE RENTI AL/PL ATELE T MCH 29.2 pg 26.6-3 3.0 Not Available [facility] ([facility]) [address] [place], [address], 03/02/2025 08:22:20 03/01/20 25 03/02/2025 CBC WITH DIFFE RENTI AL/PL ATELE T MCHC 32.0 g/dL 31.5-3 5.7 Not Available [facility] ([facility]) [address] [facility], [place], [address], 03/02/2025 08:22:20 03/01/20 25 03/02/2025 CBC WITH DIFFE RENTI AL/PL ATELE T RDW 12.3 % 11.7-1 5.4 Not Available [facility] ([facility]) [address] [facility], [place], [address], 03/02/2025 08:22:20 03/01/20 25 03/02/2025 CBC WITH DIFFE RENTI AL/PL ATELE T platelets 256 x10e3 /uL 150-45 0 Not Available [facility] ([facility]) [address] [facility], [place], [address], 03/02/2025 08:22:20 03/01/20 25 03/02/2025 CBC WITH DIFFE RENTI AL/PL ATELE T neutrophils 67 % notest ab. Not Available [facility] ([facility]) [address] [facility], [place], [address], 03/02/2025 08:22:20 03/01/20 25 03/02/2025 CBC WITH DIFFE RENTI AL/PL ATELE T lymphs 23 % notest ab. Not Available [facility] ([facility]) [address] [facility], [place], [address], 03/02/2025 08:22:20 03/01/20 25 03/02/2025 CBC WITH DIFFE RENTI AL/PL ATELE T monocytes 7 % notest ab. Not Available [facility] ([facility]) [address] [facility], [place], [address], 03/02/2025 08:22:20 03/01/20 25 03/02/2025 CBC WITH DIFFE RENTI AL/PL ATELE T eos 2 % notest ab. Not Available [facility] ([facility]) [address] [facility], [place], [address], 03/02/2025 08:22:20 03/01/20 25 03/02/2025 CBC WITH DIFFE RENTI AL/PL ATELE T basos 1 % notest ab. Not Available [facility] ([facility]) [address] [facility], [place], [address], 03/02/2025 08:22:20 03/01/20 25 03/02/2025 CBC WITH DIFFE RENTI AL/PL ATELE T neutrophils (absolute) 4.2 x10e3 /uL 1.4-7. 0 Not Available [facility] ([facility]) [address] [facility], [place], [address], 03/02/2025 08:22:20 03/01/20 25 03/02/2025 CBC WITH DIFFE RENTI AL/PL ATELE T lymphs (absolute) 1.5 x10e3 /uL 0.7-3. 1 Not Available [facility] ([facility]) [address] [place], [address], 03/02/2025 08:22:20 03/01/20 25 03/02/2025 CBC WITH DIFFE RENTI AL/PL ATELE T monocytes(ab solute) 0.4 x10e3 /uL 0.1-0. 9 Not Available [facility] ([facility]) [address] [facility], [place], [address], 03/02/2025 08:22:20 03/01/20 25 03/02/2025 CBC WITH DIFFE RENTI AL/PL ATELE T eos (absolute) 0.1 x10e3 /uL 0.0-0. 4 Not Available [facility] ([facility]) [address] [place], [address], 03/02/2025 08:22:20 03/01/20 25 03/02/2025 CBC WITH DIFFE RENTI AL/PL ATELE T baso (absolute) 0.0 x10e3 /uL 0.0-0. 2 Not Available [facility] ([facility]) [address] [facility], [place], [address], 03/02/2025 08:22:20 03/01/20 25 03/02/2025 CBC WITH DIFFE RENTI AL/PL ATELE T immature granulocytes 0 % notest ab. Not Available [facility] ([facility]) [address] [facility], [place], [address], 03/02/2025 08:22:20 03/01/2003/02/2025 CBC WITH DIFFE RENTI AL/PL ATELE T immature grans (abs) 0.0 x10e3 /uL 0.0-0. 1 Not Available [facility] ([facility]) [address] [facility], [place], [address], 03/02/2025 08:22:20 12/03/19 25 12/25/2017 MAMMO , scree armin, digit al, bilat eral No observ ation record ed. [email or web address] Not Available 2024 13:25:47 12/03/19 25 10/05/2022 DEXA No observ ation record ed. [email or web address] [facility] [address] [place], [address], 12/07/2024 11:06:00 Result Notes None recorded. Procedures Surgical History Date Name Laterality Status Provider Name and Address Organization Details Recorded Time 10/10/19 08 Knee Surgery completed LAURA Damon 08/31/2024 12:56:45 10/10/18 86 ligation and division of bilateral fallopian tubes completed LAURA Damon 08/31/2024 12:57:20 10/10/18 86 section completed LAURA Damon 08/31/2024 12:57:46 10/10/18 84 section completed LAURA Damon 08/31/2024 12:57:41 10/10/18 81 Arthroscopic Surgery completed Dorene Koenig MA [facility] 08/31/2024 12:56:31 Imaging Results None recorded. Procedure Notes None recorded. Medical Equipment None Reported. Allergies No known drug allergies Medications Name Sig Start Date Stop Date Status Note LastModified by Organization Details LastModified Time atorvastatin 10 mg tablet TAKE 1 TABLET BY MOUTH EVERY DAY 2024 active Not Available Not Available Not Avai lable meloxicam 15 mg tablet TAKE 1 TABLET BY MOUTH EVERY DAY WITH MEALS active Not Available Not Available No t Available nitrofuranto in monohydrate/ macrocrystal s 100 mg capsule TAKE 1 CAPSULE BY MOUTH EVERY 12 HOURS FOR 7 DAYS 07/26 completed Not Available Not Available Not Available Vitals Date Recorded Body height Body mass index (BMI) Body weight Heart rate Oxygen saturation Oxygen saturation in Arterial blood by Pulse oximetry Systolic And Diastolic Provider Name and Address Organization Details Last Updated DateTime 5 165.1 cm 31.3 kg/m2 92197.4 4 g 64 /min 98 % 98 % 114/62 mm[Hg] Zaira LAURA Cortes [facility] 5 09:54:59 Date Recorded Body height Body mass index (BMI) Body weight Heart rate Oxygen saturation Oxygen saturation in Arterial blood by Pulse oximetry Systolic And Diastolic Provider Name and Address Organization Details Last Updated DateTime 4 165.1 cm 30 kg/m2 75579.0 6 g 73 /min 99 % 99 % 118/78 mm[Hg] Dorene Koenig MA [facility] 4 12:53:51 Social History Question Answer Notes LastModified by Organizat ion Details LastModified Time Tobacco Smoking Status Never Smoker Dorene KoenigLAURA ayesha [facility] 08/31/2024 13:02:38 Do You Have An Advance Directive? No Information n ot available 08/31/2024 Are You Blind Or Do You Have Difficulty Seeing? No Information n ot available 08/31/2024 What Is Your Level Of Caffeine Consumption? Occasional Information not available 08/31/2024 In The 14 Days Before Symptom Onset, Have You Had Close Contact With A Laboratory-confirm ed COVID-19 While That Case Was Ill? No Information n ot available 08/31/2024 In The 14 Days Before Symptom Onset, Have You Had Close Contact With A Person Who Is Under Investigation For COVID-19 While That Person Was Ill? No Information not available 08/31/2024 Have You Been To An Area Known To Be High Risk For COVID-19? No Information not available 08/31/2024 Are You Deaf Or Do You Have Serious Difficulty Hearing? No Information not available 08/31/2024 What Type Of Diet Are You Following? REGULAR Information n ot available 08/31/2024 Are There Any Guns Present In Your Home? No Information not available 08/31/2024 What Was The Date Of Your Most Recent Tobacco Screening? 03/01/2025 [email or web address] Information not available 03/01/2025 What Is Your Relationship Status? Information not available 08/31/2024 Do You Use Your Seat Belt Or Car Seat Routinely? Yes Information not available 08/31/2024 Do You Have Smoke And Carbon Monoxide Detectors In Your Home? Yes Information not available 08/31/2024 Do You Use Sunscreen Routinely? No Information not available 08/31/2024 Has Tobacco Cessation Counseling Been Provided? No Information not available 08/31/2024 Sex: Female Functional Status Question Answer Note LastModified by Organizat ion Details LastModified Time Do you use any illicit or recreational drugs? No Information not available 08/31/2024 Do you or have you ever used any other forms of tobacco or nicotine? No Information not available 08/31/2024 What is your level of alcohol consumption? Occasional Information not available 08/31/2024 Are you currently employed? No Information not available 08/31/2024 Are you able to care for yourself? Yes Information n ot available 08/31/2024 Mental Status None recorded. Family History Nothing Reported. Medical History No medical history recorded. Gynecological HistoryNo gynecological history recorded. Obstetrics History GPAL:G 0 P 0 0 0 0 Immunizations Vaccine Type Date Status Note Provider Nam e and Address Organization Details Recorded Time Influenza, split virus, quadrivalent, preservative 6 completed Dorene Koenig, [place], [place] [facility] 11/30/2024 15:11:22 COVID-19, mRNA, LNP-S, PF, 100 mcg/0.5mL dose or 50 mcg/0.25mL dose 1 completed Dorene Koenig, [place], [place] [facility] 11/30/2024 15:11:22 COVID-19, mRNA, LNP-S, PF, 100 mcg/0.5mL dose or 50 mcg/0.25mL dose 1 completed Dorene Koenig, [place], [place] [facility] 11/30/2024 15:11:22 SARS-COV-2 (COVID-19) vaccine, UNSPECIFIED 1 completed Dorene Koenig, [place] [facility] 11/30/2024 15:11:22 Tdap 4 completed Dorene Koenig [place] [facility] 11/30/2024 15:11:22 Influenza, split virus, trivalent, PF 4 completed Dorene Koenig, [place] [facility] 11/30/2024 15:11:22 Influenza, split virus, quadrivalent, PF 0 completed Dorene Koenig, [place] [facility] 11/30/2024 15:11:22 Influenza, split virus, quadrivalent, PF 7 completed Dorene Koenig, [place] [facility] 11/30/2024 15:11:22 Influenza, split virus, quadrivalent, PF 8 completed Dorene Koenig, [place] [facility] 11/30/2024 15:11:22 Influenza, split virus, quadrivalent, PF 5 completed Dorene Koenig, [place] [facility] 11/30/2024 15:11:22 Past Encounters Encounter ID Performer Location Encounter Start Date Encounter Closed Date Diagnosis/Indication Diagnosis SNOMED-CT Code Diagnosis ICD10 Code Diagnosis Note [id number] Wai March MD [facility] (Adult Med) [address] [place] [address] 08/31/2024 12:12:49 08/31/2024 14:26:03 Body mass index 30+ - obesity 293900192 Z68.30 Overweight 692297003 E66 .3 Adult heal th examination 088354403 Z00.00 [id number] Wai March MD [facility] (Adult Med) [address] [place] [address] 03/01/2025 09:43:07 03/01/2025 10:28:35 Obese class I 6841565524 97347 E66.811 Pain of knee region 1003 132741 M25.569 Screening for cardiovascular system disease 188952723 Z13.6 Long-term current use of drug therapy 560229499 Z79.899 Health Concerns Section Related Observation LastModified by Organization Detai ls LastModified Time None Recorded Concern Status LastModified by Organization Details LastModified Time None Recorded Advance Directives Directive N: Payers Insurance Date Sequence Insurance Name Policy Number Policy Conrad Covered Member ID Conrad Member ID Guarantor Name 03/05/2025 1 [facility] (MEDICARE REPLACEMENT/A DVANTAGE - HMO) [id number] Grecia Myrick Martin [id number] Grecia Martin 03/05/2025 2 FOR LIFE () Mitchel Alicea Martin [id number] Grecia Martin 08/31/2024 1 *SELF PAY* Ch george Salazar Notes Date Note Type Note Provider Name and Address Organization Details Recorded Time 08/31/2024 text/html 68-year-old new patient meds none allergies none surgeries tubal ligation left knee right knee arthroscopy family history mother of metastatic cancer primary unknown father COPD. Socially denies smoking or drinking no alcohol she still works part-time and a local [employer] she was have some problems with left knee that bothers her from time to time Wai March MD Attn: Accounting[address], [place], [address], [facility] 09/16/2024 21:35:22 03/01/2025 text/html Arthritis in her knees really bothering her she would like to see specialists. [id number] analgesics not really helping LAURA Ericks[place], [place] [facility] 03/01/2025 14:44:27 OBGyn Episode No OBEpisode recorded.
--- NOTE | 2025-04-18 12:43 | ECG_ITS ---
Test Date: 2025-04-18 13:04:46 Measurements Intervals [place] Rate: 63 P: 79 NC: 174 QRS: 23 QRSD: 78 T: 30 QT: 398 QTc: 408 Interpretive Statements SINUS RHYTHM No previous ECG available for comparison Electronically Signed On 04-18-2025 13:16:43 CDT by Velasquez Jay M.D.
[2025-04-18 13:20] LABS: Hematocrit 43.7 % (37.0-47.0); Hemoglobin 14.3 g/dL (12.0-15.0); Immature Granulocyte Percent A 0.3 % (0-0.5); Lymphocytes Absolute Auto 1.64 K/mm3 (0.9-3.2); Mean Corpuscular HGB Conc 32.7 g/dl (32-36); Mean Corpuscular Hemoglobin 28.9 pg (26-34); Mean Corpuscular Volume 88.5 fl (80-100); Nucleated Red Blood Cells Absolute Auto 0.000 K/mm3 (0.0-0.012); Nucleated Red Blood Cells Perc 0.0 % (0.0-0.2); Platelet Count Result 243 k/mm3 (150-375); Red Blood Count 4.94 M/mm3 (4.2-5.4); White Blood Count 6.5 K/mm3 (4.5-10.0)
[2025-04-18 13:32] LABS: Hemoglobin A1C 5.8 % (<5.7)
[2025-04-18 14:21] LABS: Albumin Level 4.5 g/dL (3.5-5.1); Anion Gap 11 mmol/L (4-12); Blood Urea Nitrogen 11 mg/dL (7-17); Calcium 9.9 mg/dL (8.4-10.2); Carbon Dioxide 24 mmol/L (22-30); Chloride 104 mmol/L (98-107); Estimated Glomerular Filt Rate > 60; Glucose 112 mg/dL (65-110); Potassium 3.7 mmol/L (3.4-5.0); Sodium 139 mmol/L (137-145)
== END 2025-04-18 11:50 | disposition home or self-care (01) ==
LOC: ANHSURGERY 11:54
PROVIDERS: PCP Internal Medicine; Visit Provider Orthopaedic Surgery
DX: M17.12 Unilateral primary osteoarthritis, left knee (principal); Z01.818 Encounter for other preprocedural examination
CPT/HCPCS: 80048; 80307; 82040; 83036; 85025; 87081; 93005

== ENCOUNTER 2025-05-07 02:23 | Day surgery (SDC) | payer MEDICARE, OTHER, SELFPAY ==
[2025-04-18 12:13] VITALS: BP 108/77; PULSE 66; RESP 16; TEMP 37.2; O2SAT 99; BMI 32.5
--- NOTE | 2025-04-18 12:34 | PC.NURSE ---
Report to the Outpatient Waiting Room, entrance under the green pavilion located off [facility], at time __06:00am on date __05/07/25 . Planned Procedure Time: __07:30am .? Time changes happen often and if your time is changed the preop area will call you the afternoon before. - You and your visitor will be asked to self-screen and do not enter if you have any COVID symptoms. Please call surgeon if you need to reschedule. - A mask is optional within the hospital at this time. Patients may have clear liquids (water, carbonated beverages, clear teas, apple juice) until 3 hours prior to surgery with a maximum of 20 ounces. - No food from midnight until time of surgery and no smoking, or chewing tobacco (or any form of nicotine). No chewing gum, candy or mints.( 04:30am) Take only the following medications with a SIP of water on the morning of surgery: None DO NOT STOP ANY OF YOUR OTHER PRESCRIPTION MEDICATIONS PRIOR TO SURGERY EXCEPT THE FOLLOWING Hold all vitamins and supplements for 3 days per anesthesiologist. Medications to discontinue per physician NONE Date to take last dose__NONE Please no make-up, nail tamazight, hairspray, perfume, deodorant, or body powder the day of surgery.? No jewelry (including any body piercings) or valuables the day of surgery, leave them at home.? Please take a shower or bath the night before, or the morning of, surgery with an antibacterial soap.? Wear comfortable, loose fitting clothing.? LINDA SCRUB per Dr Mccoy Bring Overnight Cell phone, Business Unit Manager and anything else you might needed - Jewelry must be removed prior to entering the operating room.? Rings and piercings that are not removed may be cut off. - The hospital will not accept responsibility for valuables.? - Please leave all valuables, including medications, at home the day of surgery. If you are going home after surgery, a licensed cement mixer driver must drive you home.? - NO public transportation without another adult if you receive anesthesia. - We recommend that an adult stay with you for 24 hours following discharge. - We also recommend that you do not drive, make important decision, drink alcoholic beverages, or take any drugs that were not prescribed by your health care provider for at least 24 hours after your discharge time. Follow any additional instructions given to you from your surgeon. Telephone instructions given to ___Patient and asked if any additional questions and then verbalized understanding. Patient advised to call surgeon office or pre surgery nurse liaison [phone] if any additional questions.
--- NOTE | 2025-05-06 12:24 | P.HP_ITS ---
H&P: HPI History of Present Illness Date/Time: 05/06/25 12:24 Chief Complaint: Left knee DJD Narrative: 69-year-old female who presents today for left total knee arthroplasty and removal of cannulated screw proximal tibia. Patient having pain and symptoms in her knee for several years. She has severe medial compartment osteoarthritis. She has been treating this nonsurgically with [id number] anti-infla mmatories klein cortisone injections. Last cortisone injection was about 2 years ago, she got minimal relief from that. She has been trying to put off knee replacement for as long as possible. At this point patient is having pain on a daily basis. She has had he use a cane for longer walks. This point patient feels her symptoms severe enough on daily basis in their limiting her activities. She would like to proceed with total knee arthroplasty at this point than continue nonsurgical treatment. Patient underwent or all of the lateral tibial plateau fracture in 2007. This was treated with cannulated screws to the proximal tibia. The screws will need to be removed before proceeding with the total knee arthroplasty. Review of Systems Review of Systems: All systems reviewed & are unremarkable except as noted in HPI and below PMFSH Past Medical History Medical History Overweight Surgical History Surgical History History of 2 sections History of knee surgery left Family History Family History Father Cerebrovascular accident Social History Social History Smoking status: Never smoker Second hand tobacco smoke exposure: Yes Alcohol intake: current Alcohol use details: 2 per month Substance use: never Do You Feel Safe in your Home?: Yes Lack of Transportation: No Lack of Food: Never True Current Housing: I Have Housing Concerned About Future Housing: No Difficulty Paying Gas/Electric Bills: No Difficulty Paying for Meds: No Currently Unemployed: No Education: Associate Degree Difficulty w/ Childcare or Family Care: No Living arrangements: with family Additional living arrangements comments: Spiritual care concerns: No Meds Home Medications and Allergies Home Medications ?Medication ?Instructions ?Recorded ?Confirmed ?Type atorvastatin 10 mg tablet 10 mg PO QPM 04/18/25 04/23/25 History Allergies Allergy/AdvReac Type Severity Reaction Status Date / Time No Known Allergies Allergy Unknown Verified 04/22/25 10:44 Exam Narrative: 69-year-old female alert pleasant she is 5 ft 4 188 lb BMI is 30 0 she walks with a mild limp. Range of motion left knee is from 15-120 degrees. No effusion. Stability in the knee. 2 in longitudinal incision laterally previous surgery. There is no medial lateral joint line tenderness. Hip range of motion is full without discomfort negative Stinchfield maneuver. 2+ dorsalis pedis and posterior tibial artery pulse palpable. Normal sensation the left lower extremity. No edema in either extremity. Resp: Auscultation: clear to auscultation bilaterally Cardio: Rate: regular rate Rhythm: regular rhythm Assessment and Plan Assessment and plan (1) Primary osteoarthritis of left knee: Code(s): M17.12 - Unilateral primary osteoarthritis, left knee Status: Acute Plan 69-year-old female who has severe medial compartment osteoarthritis. She has a significant flexion contracture. She also has significant symptoms on a daily basis which are limiting her activities. At this point patient feels nonsurgical treatment is not giving her benefit and she is ready proceed with total knee arthroplasty at this point. It was discussed with her that the cannulated screws will need to be removed prior to proceeding with the total knee arthroplasty. Surgical procedure as well as the risks complications were discussed in detail and all questions were answered we will proceed. Patient will avoid any aspirin ibuprofen products 1 week prior to surgery. She will see her primary care doctor pre-surgical clearance. Patient's nasal swab was negative. Hemoglobin 14.3 and platelets are 243. Chem panel showed creatinine at 0.91.
[2025-05-07] VITALS (13 sets, daily range): BP systolic 103–120; BP diastolic 59–78; PULSE 64–78; RESP 12–18; TEMP 36–37.3; O2SAT 94–100
--- NOTE | ~2025-05-07 | XR_ITS ---
EXAMINATION: [id number] DATE: 05/07/2025 11:38 CDT INDICATION: Postoperative evaluation TECHNIQUE: 2 views knee FINDINGS: There is a left total knee arthroplasty, with patellar resurfacing in expected position. Subcutaneous gas with fluid and air in the joint are consistent with recent intervention. No evidence of periprosthetic fracture. IMPRESSION: 1. Recent left total knee arthroplasty and patellar resurfacing. Reviewed, dictated and finalized at location A.
--- OUTSIDE RECORDS SUMMARY | 2025-05-07 03:29 | XMS_ITS | Data Portability ---
Author Organization [facility] Address [address] [place] [address] Care Team Providers Care Director Of Community Life Name Role Phone WAI MARCH Primary Care Provider [phone] Assessment Encounter Date Assessment Date Assessment LastModified by Organization Details LastModified Time 08/31/2024 08/31/2024 healthy lifestyle care instructions obtain old records because she says she just recently had some blood work she will see me in 6 months we will obtain her mammogram and colonoscopy reports Not available 09/16/2024 21:35:01 03/01/2025 03/01/2025 Orthopedic referral blood work 6 months follow up healthy lifestyle care instructions [email or web address] Not available 03/01/2025 11:16:45 Plan of Treatment Reminders Order Date Submit Date Provider Last Modified By Organization Details Last Modified Time Details Appointments ANY 15 2024 09:15A M Wai March MD Not available Not available Not available Lab CBC w/ auto diff 2024 025 DA LABJORGE, [facility] [address], [place], [address], 03/02/2025 08:22:20 lipid panel, serum 2024 025 DA HUERTA, [facility] [address], [place], [address], 03/02/2025 08:22:18 CMP, serum or plasma 2024 025 DA HUERTA, [address] [facility] [address], [place], [address], 03/02/2025 08:22:19 Referral orthopedi c surgeon referral 2024 025 DA Rich, [address], [address], [place], [address], 04/15/2025 12:31:47 Procedures None recorded. Surgeries None recorded. Imaging None recorded. Medication Orders None recorded. Patient TargetsNo targets recorded. Patient Instructions Encounter Date Encounter Id Patient Instructions Last Modified By Organization Details Last Modified Time 08/31/2024 [id number] A healthy lifestyle: care instructions [email or web address] Not available 08/31/2024 14:35:36 03/01/2025 [id number] A healthy lifestyle: care instructions Not available 03/01/2025 12:00:24 Reason for Referral Orthopedic Surgeon Referral for Pain of knee region Referring Physician: Wai March, Internal Medicine, Encounter Date: 03/01/2025 Results Created Date Observation Date Name Description Value Unit Range Abnormal Flag Note LastModifiedBy Organization Detail LastModifiedTime 03/01/2003/02/2025 LIPID PANEL cholesterol, total 228 mg/dL 100-19 9 above high normal Not Available [facility] ([facility]) [address] [place], [address], 03/02/2025 08:22:18 03/01/2003/02/2025 LIPID PANEL triglyceride s 157 mg/dL 0-149 above high normal Not Available [facility] ([facility]) [address] [place], [address], 03/02/2025 08:22:18 03/01/20 25 03/02/2025 LIPID PANEL HDL cholesterol 47 mg/dL >39 Not Available [facility] ([facility]) [address] [place], [address], 03/02/2025 08:22:18 03/01/20 25 03/02/2025 LIPID PANEL VLDL cholesterol elham 28 mg/dL 5-40 Not Available [facility] ([facility]) [address] [place], [address], 03/02/2025 08:22:18 03/01/20 25 03/02/2025 LIPID PANEL LDL chol calc ([facility]) 153 mg/dL 0-99 above high normal Not Available [facility] ([facility]) [address] [place], [address], 03/02/2025 08:22:18 03/01/20 25 03/02/2025 COMP. METAB OLIC PANEL (14) glucose 106 mg/dL 70-99 above high normal Not Available [facility] ([facility]) [address] [place], [address], 03/02/2025 08:22:19 03/01/20 25 03/02/2025 COMP. METAB OLIC PANEL (14) BUN 11 mg/dL 8-27 Not Available [facility] ([facility]) [address] [place], [address], 03/02/2025 08:22:19 03/01/20 25 03/02/2025 COMP. METAB OLIC PANEL (14) creatinine 1.11 mg/dL 0.57-1 .00 above high normal Not Available [facility] ([facility]) [address] [place], [address], 03/02/2025 08:22:19 03/01/20 25 03/02/2025 COMP. METAB OLIC PANEL (14) eGFR 54 mL/mi n/1.7 3 >59 below low normal Not Available [facility] ([facility]) [address] [place], [address], 03/02/2025 08:22:19 03/01/20 25 03/02/2025 COMP. METAB OLIC PANEL (14) BUN/creatini ne ratio 10 12-28 below low normal Not Available [facility] ([facility]) [address] [facility] [place], [address], 03/02/2025 08:22:19 03/01/20 25 03/02/2025 COMP. METAB OLIC PANEL (14) sodium 142 mmol/ L 134-14 4 Not Available [facility] ([facility]) [address] [place], [address], 03/02/2025 08:22:19 03/01/20 25 03/02/2025 COMP. METAB OLIC PANEL (14) potassium 4.9 mmol/ L 3.5-5. 2 Not Available [facility] ([facility]) [address] [place], [address], 03/02/2025 08:22:19 03/01/20 25 03/02/2025 COMP. METAB OLIC PANEL (14) chloride 102 mmol/ L 96-106 Not Available [facility] ([facility]) [address] [place], [address], 03/02/2025 08:22:19 03/01/20 25 03/02/2025 COMP. METAB OLIC PANEL (14) carbon dioxide, total 24 mmol/ L 20-29 Not Available [facility] ([facility]) [address] [facility] [place], [address], 03/02/2025 08:22:19 03/01/20 25 03/02/2025 COMP. METAB OLIC PANEL (14) calcium 10.1 mg/dL 8.7-10 .3 Not Available [facility] ([facility]) [address] [place], [address], 03/02/2025 08:22:19 03/01/20 25 03/02/2025 COMP. METAB OLIC PANEL (14) protein, total 7.1 g/dL 6.0-8. 5 Not Available [facility] ([facility] [address] [facility] [place], [address], 03/02/2025 08:22:19 03/01/20 25 03/02/2025 COMP. METAB OLIC PANEL (14) albumin 4.7 g/dL 3.9-4. 9 Not Available [facility] ([facility]) [address] [facility] [place], [address], 03/02/2025 08:22:19 03/01/20 25 03/02/2025 COMP. METAB OLIC PANEL (14) globulin, total 2.4 g/dL 1.5-4. 5 Not Available [facility] ([facility]) [address] [facility] [place], [address], 03/02/2025 08:22:19 03/01/20 25 03/02/2025 COMP. METAB OLIC PANEL (14) bilirubin, total 0.5 mg/dL 0.0-1. 2 Not Available [facility] ([facility]) [address] [facility] [place], [address], 03/02/2025 08:22:19 03/01/20 25 03/02/2025 COMP. METAB OLIC PANEL (14) alkaline phosphatase 126 IU/L 44-121 above high normal Not Available [facility] ([facility]) [address] [place], [address], 03/02/2025 08:22:19 03/01/20 25 03/02/2025 COMP. METAB OLIC PANEL (14) AST (SGOT) 14 IU/L 0-40 Not Available [facility] ([facility]) [address] [place], [address], 03/02/2025 08:22:19 03/01/20 25 03/02/2025 COMP. METAB OLIC PANEL (14) ALT (SGPT) 11 IU/L 0-32 Not Available [facility] ([facility]) [address] [place], [address], 03/02/2025 08:22:19 03/01/20 25 03/02/2025 CBC WITH DIFFE RENTI AL/PL ATELE T WBC 6.3 x10e3 /uL 3.4-10 .8 Not Available [facility] ([facility]) [address] [facility], [place], [address], 03/02/2025 08:22:20 03/01/20 25 03/02/2025 CBC WITH DIFFE RENTI AL/PL ATELE T RBC 5.27 x10e6 /uL 3.77-5 .28 Not Available [facility] ([facility]) [address] [facility], [place], [address], 03/02/2025 08:22:20 03/01/2003/02/2025 CBC WITH DIFFE RENTI AL/PL ATELE T hemoglobin 15.4 g/dL 11.1-1 5.9 Not Available [facility] ([facility]) [address] [place], [address], 03/02/2025 08:22:20 03/01/2003/02/2025 CBC WITH DIFFE RENTI AL/PL ATELE T hematocrit 48.2 % 34.0-4 6.6 above high normal Not Available [facility] ([facility]) [address] [place], [address], 03/02/2025 08:22:20 03/01/2003/02/2025 CBC WITH DIFFE RENTI AL/PL ATELE T MCV 92 fL 79-97 Not Available [facility] ([facility]) [address] [place], [address], 03/02/2025 08:22:20 03/01/2003/02/2025 CBC WITH DIFFE RENTI AL/PL ATELE T MCH 29.2 pg 26.6-3 3.0 Not Available [facility] ([facility]) [address] [place], [address], 03/02/2025 08:22:20 03/01/20 25 03/02/2025 CBC WITH DIFFE RENTI AL/PL ATELE T MCHC 32.0 g/dL 31.5-3 5.7 Not Available [facility] ([facility]) [address] [facility], [place], [address], 03/02/2025 08:22:20 03/01/20 25 03/02/2025 CBC WITH DIFFE RENTI AL/PL ATELE T RDW 12.3 % 11.7-1 5.4 Not Available [facility] ([facility]) [address] [facility], [place], [address], 03/02/2025 08:22:20 03/01/20 25 03/02/2025 CBC WITH DIFFE RENTI AL/PL ATELE T platelets 256 x10e3 /uL 150-45 0 Not Available [facility] ([facility]) [address] [facility], [place], [address], 03/02/2025 08:22:20 03/01/20 25 03/02/2025 CBC WITH DIFFE RENTI AL/PL ATELE T neutrophils 67 % notest ab. Not Available [facility] ([facility]) [address] [facility], [place], [address], 03/02/2025 08:22:20 03/01/20 25 03/02/2025 CBC WITH DIFFE RENTI AL/PL ATELE T lymphs 23 % notest ab. Not Available [facility] ([facility]) [address] [facility], [place], [address], 03/02/2025 08:22:20 03/01/20 25 03/02/2025 CBC WITH DIFFE RENTI AL/PL ATELE T monocytes 7 % notest ab. Not Available [facility] ([facility]) [address] [facility], [place], [address], 03/02/2025 08:22:20 03/01/20 25 03/02/2025 CBC WITH DIFFE RENTI AL/PL ATELE T eos 2 % notest ab. Not Available [facility] ([facility]) [address] [facility], [place], [address], 03/02/2025 08:22:20 03/01/20 25 03/02/2025 CBC WITH DIFFE RENTI AL/PL ATELE T basos 1 % notest ab. Not Available [facility] ([facility]) [address] [facility], [place], [address], 03/02/2025 08:22:20 03/01/20 25 03/02/2025 CBC WITH DIFFE RENTI AL/PL ATELE T neutrophils (absolute) 4.2 x10e3 /uL 1.4-7. 0 Not Available [facility] ([facility]) [address] [facility], [place], [address], 03/02/2025 08:22:20 03/01/20 25 03/02/2025 CBC WITH DIFFE RENTI AL/PL ATELE T lymphs (absolute) 1.5 x10e3 /uL 0.7-3. 1 Not Available [facility] ([facility]) [address] [place], [address], 03/02/2025 08:22:20 03/01/20 25 03/02/2025 CBC WITH DIFFE RENTI AL/PL ATELE T monocytes(ab solute) 0.4 x10e3 /uL 0.1-0. 9 Not Available [facility] ([facility]) [address] [facility], [place], [address], 03/02/2025 08:22:20 03/01/20 25 03/02/2025 CBC WITH DIFFE RENTI AL/PL ATELE T eos (absolute) 0.1 x10e3 /uL 0.0-0. 4 Not Available [facility] ([facility]) [address] [place], [address], 03/02/2025 08:22:20 03/01/20 25 03/02/2025 CBC WITH DIFFE RENTI AL/PL ATELE T baso (absolute) 0.0 x10e3 /uL 0.0-0. 2 Not Available [facility] ([facility]) [address] [facility], [place], [address], 03/02/2025 08:22:20 03/01/20 25 03/02/2025 CBC WITH DIFFE RENTI AL/PL ATELE T immature granulocytes 0 % notest ab. Not Available [facility] ([facility]) [address] [facility], [place], [address], 03/02/2025 08:22:20 03/01/2003/02/2025 CBC WITH DIFFE RENTI AL/PL ATELE T immature grans (abs) 0.0 x10e3 /uL 0.0-0. 1 Not Available [facility] ([facility]) [address] [facility], [place], [address], 03/02/2025 08:22:20 12/03/19 25 12/25/2017 MAMMO , scree armin, digit al, bilat eral No observ ation record ed. [email or web address] Not Available 2024 13:25:47 12/03/19 25 10/05/2022 DEXA No observ ation record ed. [email or web address] [facility] [address] [place], [address], 12/07/2024 11:06:00 04/23/20 25 04/18/2025 elect leonora sheehangr am No observ ation record ed. [email or web address] [facility] [address], [place], [address], 05/06/2025 23:06:26 Result Notes None recorded. Procedures Surgical History Date Name Laterality Status Provider Name and Address Organization Details Recorded Time 10/10/19 08 Knee Surgery completed Dorene Koenig [place] - [facility] 08/31/2024 12:56:45 10/10/18 86 ligation and division of bilateral fallopian tubes completed Dorene Koenig MA [facility] 08/31/2024 12:57:20 10/10/18 86 section completed Dorene Koenig MA [facility] 08/31/2024 12:57:46 10/10/18 84 section completed Dorene Koenig MA [facility] 08/31/2024 12:57:41 10/10/18 81 Arthroscopic Surgery completed Dorene Koenig MA [facility] 08/31/2024 12:56:31 Imaging Results None recorded. Procedure Notes None recorded. Medical Equipment None Reported. Allergies No known drug allergies Medications Name Sig Start Date Stop Date Status Note LastModified by Organization Details LastModified Time atorvastatin 10 mg tablet TAKE 1 TABLET BY MOUTH EVERY DAY active Not Available Not Available No t Available meloxicam 15 mg tablet TAKE 1 [...] Updated DateTime 5 165.1 cm 31.3 kg/m2 71059.4 4 g 64 /min 98 % 98 % 114/62 mm[Hg] Zaira Cortes [facility] 5 09:54:59 Date Recorded Body height Body mass index (BMI) Body weight Heart rate Oxygen saturation Oxygen saturation in Arterial blood by Pulse oximetry Systolic And Diastolic Provider Name and Address Organization Details Last Updated DateTime 4 165.1 cm 30 kg/m2 27434.0 6 g 73 /min 99 % 99 % 118/78 mm[Hg] Dorene Koenig MA [facility] 4 12:53:51 Social History Question Answer Notes LastModified by Organizat ion Details LastModified Time Tobacco Smoking Status Never Smoker Dorene Koenig MA null [facility] 08/31/2024 13:02:38 Do You Have An Advance [...] 08/31/2024 Are you able to care for yourself independently? Yes Information not available 08/31/2024 Mental Status None recorded. Family History Nothing Reported. Medical History No medical history recorded. Gynecological HistoryNo gynecological history recorded. Obstetrics History GPAL:G 0 P 0 0 0 0 Immunizations Vaccine Type Date Status Note Provider Nam e and Address Organization Details Recorded Time Influenza, split virus, quadrivalent, preservative 6 completed Dorene Koenig, LAURA null, [place] [facility] 11/30/2024 15:11:22 COVID-19, mRNA, LNP-S, PF, 100 mcg/0.5mL dose or 50 mcg/0.25mL dose 1 completed Dorene Koenig [place], [place] [facility] 11/30/2024 15:11:22 COVID-19, mRNA, LNP-S, PF, 100 mcg/0.5mL dose or 50 mcg/0.25mL dose 1 completed Dorene Koenig [place], [place] [facility] 11/30/2024 15:11:22 SARS-COV-2 (COVID-19) vaccine, UNSPECIFIED 1 completed Dorene Ko[place] [facility] 11/30/2024 15:11:22 Tdap 4 completed Dorene Koenig [place] [facility] 11/30/2024 15:11:22 Influenza, split virus, trivalent, PF 4 completed Dorene Koenig, [place], [place] [facility] 11/30/2024 15:11:22 Influenza, split virus, quadrivalent, PF 0 completed Dorene Koenig [place] [facility] 11/30/2024 15:11:22 Influenza, split virus, quadrivalent, PF 7 completed Dorene Ko[place] [facility] 11/30/2024 15:11:22 Influenza, split virus, quadrivalent, PF 8 completed Dorene Ko[place] [facility] 11/30/2024 15:11:22 Influenza, split virus, quadrivalent, PF 5 completed Dorene Koenig [place] [facility] 11/30/2024 15:11:22 Past Encounters Encounter ID Performer Location Encounter Start Date Encounter Closed Date Diagnosis/Indication Diagnosis SNOMED-CT Code Diagnosis ICD10 Code Diagnosis Note [id number] MD Geeta Craig (Adult Med) [address] [place] [address] 08/31/2024 12:12:49 08/31/2024 14:26:03 Body mass index 30+ - obesity 873226512 Z68.30 Overweight 319401940 E66 .3 Adult heal th examination 797805475 Z00.00 [id number] MD Geeta Craig (Adult Med) [address] [place] [address] 03/01/2025 09:43:07 03/01/2025 10:28:35 Obese class I 6574052426 78095 E66.811 Pain of knee region 1003 669125 M25.569 Screening for cardiovascular system disease 182063360 Z13.6 Long-term current use of drug therapy 530695736 Z79.899 Health Concerns Section Related Observation LastModified by Organization Detai ls LastModified Time None Recorded Concern Status LastModified by Organization Details LastModified Time None Recorded Advance Directives Directive N: Payers Insurance Date Sequence Insurance Name Policy Number Policy Conrad Covered Member ID Conrad Member ID Guarantor Name 03/05/2025 1 [facility] (MEDICARE REPLACEMENT/A DVANTAGE - HMO) [id number] Grecia Salazar [id number] Grecia Martin 03/05/2025 2 FOR LIFE () Mitchel Salazar [id number] Grecia Martin 08/31/2024 1 *SELF PAY* Ch ermaliha Salazar OBGyn Episode No OBEpisode recorded.
--- OUTSIDE RECORDS SUMMARY | 2025-05-07 03:29 | XMS_ITS | Data Portability ---
Author Organization [place] - [facility], Main Office Address [address] [place] [address] Care Team Providers Care Director Of Advertising Sales Name Role Phone TYRONE ROBLES Primary Care Provider [phone] TYRONE ROBLES Referring Provider Assessment Encounter Date [...] recorded. Lab lipid panel, serum [address] (Lab), [address] [place], [address], 4 08:08:46 TSH, serum or plasma [address] (Lab), [address] [place], [address], 4 08:08:46 CBC 2023 [facility]24 [email or web address] (Lab), [address] [place], [address], 4 08:08:46 glycohemog lobin, total, blood 2023 024 [email or web address] (Lab), [address] [place], [address], 4 08:08:46 CMP, serum or plasma 2023 024 [facility] [address] [place], [address], 23:36:52 Referral None recorded. Procedures None recorded. Surgeries None recorded. Imaging None recorded. Medication Orders meloxicam 15 mg tablet 2023 024 [id number] In [facility], [address] [place], [address], 4 10:54:50 Patient TargetsNo targets recorded. Patient Instructions Encounter Date Encounter Id Patient Instructions Last Modified By Organization Details Last Modified Time 03/08/2024 [id number] dementia rating scale-2* [email or web address] Not available 03/08/2024 08:41:09 multi-dimensiona l health assessment questionnaire* Not available 03/08/2024 08:41:12 care plan* Not available 03/08 08:20:23 advance directiv es: care instructions Not available 03/08/2024 08:20:22 advance care planning: care instructions Not available 03/08/2024 08:20:22 [place] Advance Directives Not available 03/08/2024 08:20:23 Personalized [facility] Plan and Screening Recommendations Advance Directives - [...] RIS W/RFX color DARK-Y ELLOW Not Available [facility] (Lab) [address] [place], [address], 09/23/2023 19:46:38 09/23/20 23 09/23/2023 URINA LYSIS COMPL ETE/I RIS W/RFX appear EXTRA TURBID abnormal Not Available [facility] (Lab) [address] [place], [address], 09/23/2023 19:46:38 09/23/20 23 09/23/2023 URINA LYSIS COMPL ETE/I RIS W/RFX specific gravity 1.019 1.001- 1.030 Not Available [facility] (Lab) [address] [place], [address], 09/23/2023 19:46:38 09/23/20 23 09/23/2023 URINA LYSIS COMPL ETE/I RIS W/RFX pH 5.0 pH_un its 5.0-9. 0 Not Available [facility] (Lab) [address] [place], [address], 09/23/2023 19:46:38 09/23/20 23 09/23/2023 URINA LYSIS COMPL ETE/I RIS W/RFX leukocytes >/=500 rosalino/u L negati ve- abnormal Not Available [facility] (Lab) [address] [place], [address], 09/23/2023 19:46:38 09/23/20 23 09/23/2023 URINA LYSIS COMPL ETE/I RIS W/RFX nitrite NEGATI VE negati ve- Not Available [facility] (Lab) [address] [place], [address], 09/23/2023 19:46:38 09/23/20 23 09/23/2023 URINA LYSIS COMPL ETE/I RIS W/RFX protein 50 mg/dL negati ve- abnormal Not Available [facility] (Lab) [address] [place], [address], 09/23/2023 19:46:38 09/23/20 23 09/23/2023 URINA LYSIS COMPL ETE/I RIS W/RFX glucose NORMAL mg/dL normal - Not Available [facility] (Lab) [address] [place], [address], 09/23/2023 19:46:38 09/23/20 23 09/23/2023 URINA LYSIS COMPL ETE/I RIS W/RFX ketones NEGATI VE mg/dL negati ve- Not Available [facility] (Lab) [address] [place], [address], 09/23/2023 19:46:38 09/23/20 23 09/23/2023 URINA LYSIS COMPL ETE/I RIS W/RFX urobilinogen NORMAL mg/dL normal - Not Available [facility] (Lab) [address] [place], [address], 09/23/2023 19:46:38 09/23/20 23 09/23/2023 URINA LYSIS COMPL ETE/I RIS W/RFX bilirubin NEGATI VE mg/dL negati ve- Not Available [facility] (Lab) [address] [place], [address], 09/23/2023 19:46:38 09/23/20 23 09/23/2023 URINA LYSIS COMPL ETE/I RIS W/RFX blood >/=1.0 mg/dL negati ve- abnormal Not Available [facility] (Lab) [address] [place], [address], 09/23/2023 19:46:38 09/23/20 23 09/23/2023 URINA LYSIS COMPL ETE/I RIS W/RFX white blood cells PACKED /i??h pfi?? 0-8 abnormal Not Available [facility] (Lab) [address] [place], [address], 09/23/2023 19:46:38 09/23/20 23 09/23/2023 URINA LYSIS COMPL ETE/I RIS W/RFX white blood cell clumps PACKED FIELD /i??h pfi?? none seen- abnormal Not Available [facility] (Lab) [address] [place], [address], 09/23/2023 19:46:38 09/23/20 23 09/23/2023 URINA LYSIS COMPL ETE/I RIS W/RFX red blood cells 81-100 /i??h pfi?? 0-4 abnormal Not Available [facility] (Lab) [address] [place], [address], 09/23/2023 19:46:38 09/23/20 23 09/23/2023 URINA LYSIS COMPL ETE/I RIS W/RFX bacteria NONE Not Available [facility] (Lab) [address] [place], [address], 09/23/2023 19:46:38 09/23/20 23 09/23/2023 URINA LYSIS COMPL ETE/I RIS W/RFX squamous epithelial NONE /i??l pfi?? abnormal Not Available [facility] (Lab) [address] [place], [address], 09/23/2023 19:46:38 09/23/20 23 09/23/2023 CULTU RE URINE urc ===== ===== ===== ===== ===== ===== ===== ===== ===== ===== ===== ===== ===== ===== ===== ===== ===== ===== ===== ===== ===== ===== ===== ===== CULTU RE NO.: [id number] Exam Statu s: Final Exam Type: [...] ap - Pheno type Name Not Available [facility] (Lab) [address] [place], [address], 09/26/2023 08:03:27 09/23/20 23 09/23/2023 urina lysis , dipst ick Leukocytes (reference range: negative rosalino/ l) Large Not Available [address], [address], 09/23/2023 10:17:48 09/23/20 23 09/23/2023 urina lysis , dipst ick Nitrite (reference rage: negative mg/dl) negati ve Not Available [address], [place], [address], 09/23/2023 10:17:48 09/23/20 23 09/23/2023 urina lysis , dipst ick Urobilinogen (reference range: 0.2-1 mg/dl) 1 Not Available [address], [place], [address], 09/23/2023 10:17:48 09/23/20 23 09/23/2023 urina lysis , dipst ick Protein (reference range: negative mg/dl) Large Not Available [address], [place], [address], 09/23/2023 10:17:48 09/23/20 23 09/23/2023 urina lysis , dipst ick pH (reference range: 5-7) 5.0 Not Available [address], [place], [address], 09/23/2023 10:17:48 09/23/20 23 09/23/2023 urina lysis , dipst ick Blood (reference range: negative Carmelo/ l) Modera te Not Available [address], [place], [address], 09/23/2023 10:17:48 09/23/20 23 09/23/2023 urina lysis , dipst ick Specific [place] (reference range: 1.005-1.030) 1.030 Not Available [address], [place], [address], 09/23/2023 10:17:48 09/23/20 23 09/23/2023 urina lysis , dipst ick Ketone (reference range: negative mg/dl) Negati ve Not Available [address], [place], [address], 09/23/2023 10:17:48 09/23/20 23 09/23/2023 urina lysis , dipst ick Bilirubin (reference range: negative mg/dl) Negati ve Not Available [address], [place], [address], 09/23/2023 10:17:48 09/23/20 23 09/23/2023 urina lysis , dipst ick Glucose (reference range: negative mg/dl) Negati ve Not Available [address], [place], [address], 09/23/2023 10:17:48 09/23/20 23 09/23/2023 urina lysis , dipst ick Appearance Cloudy Not Available [address], [place], [address], 09/23/2023 10:17:48 09/23/2009/23/2023 urina lysis , dipst ick Color Yellow Not Available [address], [place], [address], 09/23/2023 10:17:48 05/22/20 24 05/22/2024 urina lysis , dipst ick Leukocytes (reference range: negative rosalino/ l) Large Not Available [address], [place], [address], 05/22/2024 12:18:24 05/22/20 24 05/22/2024 urina lysis , dipst ick Nitrite (reference rage: negative mg/dl) negati ve Not Available [address], [place], [address], 05/22/2024 12:18:24 05/22/20 24 05/22/2024 urina lysis , dipst ick Urobilinogen (reference range: 0.2-1 mg/dl) 0.2 Not Available [address], [place], [address], 05/22/2024 12:18:24 05/22/20 24 05/22/2024 urina lysis , dipst ick Protein (reference range: negative mg/dl) Large Not Available [address], [place], [address], 05/22/2024 12:18:24 05/22/20 24 05/22/2024 urina lysis , dipst ick pH (reference range: 5-7) 5.5 Not Available [address], [place], [address], 05/22/2024 12:18:24 05/22/20 24 05/22/2024 urina lysis , dipst ick Blood (reference range: negative Carmelo/ l) Large Not Available [address], [place], [address], 05/22/2024 12:18:24 05/22/20 24 05/22/2024 urina lysis , dipst ick Specific [place] (reference range: 1.005-1.030) 1.025 Not Available [address], [place], [address], 05/22/2024 12:18:24 05/22/20 24 05/22/2024 urina lysis , dipst ick Ketone (reference range: negative mg/dl) Negati ve Not Available [address], [place], [address], 05/22/2024 12:18:24 05/22/20 24 05/22/2024 urina lysis , dipst ick Bilirubin (reference range: negative mg/dl) Negati ve Not Available [address], [place], [address], 05/22/2024 12:18:24 05/22/20 24 05/22/2024 urina lysis , dipst ick Glucose (reference range: negative mg/dl) Negati ve Not Available [facility] [address], [place], [address], 05/22/2024 12:18:24 05/22/2005/22/2024 urina lysis , dipst ick Appearance Cloudy Not Available [address], [place], [address], 05/22/2024 12:18:24 05/22/2005/22/2024 urina lysis , dipst ick Color Yellow Not Available [address], [place], [address], 05/22/2024 12:18:24 Result Notes None recorded. Problems Name Problem SNOMED Code Status Onset Date Resolution Date Notes Provider Name and Address Organization Details Recorded Time Leukorrhea 744118784 Active Not Available [facility] 3 06:43:50 External hemorrhoid s 24055837 Active Not Available [facility] 3 06:43:50 Perianal dermatitis 498940017 Active Not Available [facility] 3 06:43:50 Knee pain Active Not Available [facility] 3 06:43:50 Chronic kidney disease stage 1 057217935 Active Not Available [facility] 3 06:43:50 Fecal impaction 45651591 Active Not Available [facility] 3 06:43:50 Dysuria 34846817 Active Not Available [facility] 3 06:43:50 Hand pain 47662267 Active Not Available [facility] 3 06:43:50 Hyperlipid emia 24347635 Active Not Available [facility] 3 06:43:50 Hypercalce getachew 15466299 Active Not Available [facility] 3 06:43:50 Hemorrhoid s 18019460 Active Not Available [facility] 3 06:43:51 Hyperglyce getachew 44737955 Active Not Available [facility] 3 06:43:51 Internal hemorrhoid s 84209561 Active Not Available [facility] 3 06:43:51 Pain in lower limb 28067268 Active 2018 Not Available [facility] 3 06:43:50 Wears glasses 091115466 Active 2018 Not Available [facility] 3 06:43:50 Headache 72738156 Active 2018 Not Available [facility] 3 06:43:50 Skin problem 361405385 Active 2018 Not Available [facility] 3 06:43:50 Arthritis 9079732 Active 2018 Not Available [facility] 3 06:43:50 Obesity 641660119 Active 2018 Not Available [facility] 3 06:43:50 Pain of left knee joint 1716868577109 07 Active 2022 CATHERINE Rivera [address] [facility], [place], [address] , [place] [facility] 3 14:02:05 Osteoarthr itis of knee 649878029 Active 2022 Karen Ruffin RMA null, [place] [facility] 3 09:03:41 Sprain of left ankle 8237568985273 9105 Active 2022 Karen Ruffin RMA null, [place] [facility] 3 09:03:54 Pain in left foot 4510488825011 07 Active 2022 Karen Ruffin RMElen hodge, [place] [facility] 3 09:04:05 Pain of right hip joint 3073761571684 02 Active 2022 Karen Ruffin RMA null, [place] [facility] 3 09:04:23 Osteoarthr itis of left knee joint 2550983408624 09 Active 2022 Neida hodge, [place] [facility] 3 09:33:26 Acute urinary tract infection 812199207 Active 2022 Tyrone Robles MD [address] [facility], [address], [place], [address] , [facility] 11:40:34 Notes:back/neck problems, jose wel problems, numbness or tingling, depression/anxiety, chest pain or pressure, swollen or painful joints, difficulty hearing, Problem Notes None recorded. Procedures Surgical History Date Name Laterality Status Provider Name and Address Organization Details Recorded Time 03/08/20 24 Medicare Wellness CPT Code, subsequent completed Caron Wallace RN [place] [employer] [facility] 03/08/2024 07:58:09 03/15/20 23 Cortisone Injection (Dequervains/ Greater Trochantric/ Lateral Epicondylitis/ Shoulder/ Subacromial Space/ Knee or Trigger Finger) completed CATHERINE Rivera [address], [place], [address], [employer] 03/14/2023 14:01:53 10/05/20 22 Most Recent Bone Density completed Not Available [facility] 12/08/2022 06:40:53 05/08/20 21 Date of Last Colonoscopy completed Not Available [facility] 12/08/2022 06:40:53 Imaging Results None recorded. Procedure [...] day by injectio n route. 09/28 completed [facility] [id number] 02 lot [id number] exp 05/25 Not Available Not Available Not [...] Updated DateTime 10/25/2023 165.1 cm 30.8 kg/m2 13541.59 g Coco Carr CNA [facility] 10/25/2023 09:29:37 Date Recorded Body height Body mass index (BMI) Body weight Provider Name and Address Organization Details Last Updated DateTime 12/05/2023 162.56 cm 30.9 kg/m2 02688.63 g Brigitte Narendra [facility] [employer] [facility] 12/05/2023 12:14:43 Date Recorded Body height Body mass index (BMI) Body weight Body temperature Heart rate Oxygen saturation Oxygen saturation in Arterial blood by Pulse oximetry Systolic And Diastolic Provider Name and Address Organization Details Last Updated DateTime 162.56 cm 31.9 kg/m2 63472.1 8 g 96.9 [degF] 73 /min 98 % 98 % 132/88 mm[Hg] Caron Wallace RN [facility] [employer] [facility] 08:04:02 Date Recorded Body height Provider Name an d Address Organization Details Last Updated DateTime 05/22/2024 162.56 cm Jocelyn Putnam RN [facility] [employer] [facility] 05/22/2024 15:35:10 Date Recorded Body height Provider Name an d Address Organization Details Last Updated DateTime 09/23/2023 167.64 cm Jocelyn Putnam RN [facility] [employer] [facility] 09/23/2023 11:15:36 Social History Question Answer Notes LastModified by Organization Details LastModified Time Tobacco Smoking Status Never Smoker Not Available [employer] 12/08/2022 06:40:38 Do You Have An Advance Directive? No Packet Of Information MIGRATION.0301 [id number] Information not available 12/08/2022 Are You Blind Or Do You Have Difficulty Seeing? No Glasses For Reading MIGRATION.030 [id number] Information not available 12/08/2022 What Is Your Level Of Caffeine Consumption? Occasional MIGRATION.0301 [id number] Information not available 12/08/2022 How Much Tobacco Do You Chew? None MIGRATION.0301 239130 Information not available 12/08/2022 In The 14 Days Before Symptom Onset, Have You Had Close Contact With A Laboratory-confi rmed COVID-19 While That Case Was Ill? No MIGRATION.0301 [id number] Information not available 12/08/2022 In The 14 Days Before Symptom Onset, Have You Had Close Contact With A Person Who Is Under Investigation For COVID-19 While That Person Was Ill? No MIGRATION.0301 [id number] Information not available 12/08/2022 Are You Deaf Or Do You Have Serious Difficulty Hearing? No MIGRATION.0301 163294 Information not available 12/08/2022 What Type Of Diet Are You Following? REGULAR MIGRATION.0301 342595 Information not available 12/08/2022 Do You Use Insect Repellent Routinely? Yes MIGRATION.0301 799447 Information not available 12/08/2022 What Was The Date Of Your Most Recent Tobacco Screening? 07/20/2022 MIGRATION.0301 649237 Information not available 12/08/2022 Have You Ever Been Counseled For Unhealthy Alcohol Use? No MIGRATION.0301 213793 Information not available 12/08/2022 Do You Have Smoke And Carbon Monoxide Detectors In Your Home? Yes MIGRATION.0301 952299 Information not available 12/08/2022 How Much Tobacco Do You Smoke? No MIGRATION.0301 481409 Information not available 12/08/2022 Do You Use Sunscreen Routinely? Yes MIGRATION.0301 528993 Information not available 12/08/2022 Do You Have Difficulty Walking Or Climbing Stairs? No MIGRATION.0301 116042 Information not available 12/08/2022 Sex: Unknown Functional Status Question Answer Note LastModified by Organizat ion Details LastModified Time Do you use any illicit or recreational drugs? No MIGRATION.773947 8085 Information not available 12/08/2022 Do you or have you ever used any other forms of tobacco or nicotine? No MIGRATION.601664 4741 Information not available 12/08/2022 What is your level of alcohol consumption? Occasional MIGRATION.236483 7149 Information not available 12/08/2022 Do you or have you ever used smokeless tobacco? Never used smokeless tobacco MIGRATION.651216 9872 Information not available 12/08/2022 Do you have transportation difficulties? No MIGRATION.344086 0432 Information not available 12/08/2022 Are you able to walk? YESWOREST MIGRATION.013420 7363 Information not available 12/08/2022 Do you have difficulty doing errands alone? No MIGRATION.400530 6391 Information not available 12/08/2022 Are you able to care for yourself independently? 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 No MIGRATION.797897 4808 Information not available 12/08/2022 Do you or have you ever used e-cigarettes or vape? Never used electronic cigarettes MIGRATION.902377 0408 Information not available 12/08/2022 What is your exercise level? Moderate MIGRATION.641637 0479 Information not available 12/08/2022 Mental Status Question Answer Note LastModified by Organizat ion Details LastModified Time Do you feel stressed (tense, restless, nervous, or anxious, or unable to sleep at night)? [id number] MIGRATION.65231193 26 Information not available 12/08/2022 Do you have difficulty concentrating, remembering or making decisions? No MIGRATION.34934074 26 Information not available 12/08/2022 Family History Relationship Description Onset Age of this Age Resolved Age Notes LastModified by Organization Details LastModified Time Maternal Grandfather Heart disease [email or web address] Not available 2022 09:16:00 Mother Family history of malignant neoplasm [email or web address] Not available 2022 09:16:08 Notes:cancer - mother Medical History Condition Response ARTHRITIS Y Gynecological History Statement/Question Response Date of Last Colonoscopy 05/08/2021 Most Recent Bone Density 10/05/2022 Obstetrics History GPAL:G 0 P 0 0 0 0 Immunizations Vaccine Type Date Status Note Provider Nam e and Address Organization Details Recorded Time Influenza, split virus, trivalent, PF 4 completed Allyssa Chance, TRIMMER SAWYER null, [place] [facility] [place] [facility] 04/26/2023 08:08:23 SARS-COV-2 (COVID-19) vaccine, UNSPECIFIED 1 completed Not Available [facility] 12/08/2022 06:47:36 COVID-19, mRNA, LNP-S, PF, 100 mcg/0.5mL dose or 50 mcg/0.25mL dose 1 completed RENZO Das, [place] [employer] 04/26/2023 08:08:23 Influenza, split virus, quadrivalent, PF 0 completed Not Available [facility] 12/08/2022 06:47:36 Influenza, split virus, quadrivalent, PF 8 completed Not Available [facility] 12/08/2022 06:47:36 Influenza, split virus, quadrivalent, PF 7 completed Not Available [facility] 12/08/2022 06:47:36 Influenza, split virus, quadrivalent, preservative 6 completed Not Available [facility] 12/08/2022 06:47:36 Influenza, split virus, quadrivalent, PF 5 completed Not Available [facility] 12/08/2022 06:47:36 Tdap 4 completed MONSE Uribe [address] [place] [address], [address], [employer] 03/08/2024 15:35:19 Past Encounters Encounter ID Performer Location Encounter Start Date Encounter Closed Date Diagnosis/Indication Diagnosis SNOMED-CT Code Diagnosis ICD10 Code Diagnosis Note [id number] GISELE Potter [facility] Primary [facility] [address] [facility] [address] [place] [address] 12/23/2020 00:00:00 12/23/2020 08:54:42 [id number] Tyrone Robles MD [facility] [address] [facility] [address] [place] [address] 05/06/2021 00:00:00 05/06/2021 09:37:58 [id number] Tyrone Robles MD [facility] [place] [address] [facility] [address] [place] [address] 06/02/2021 00:00:00 06/03/2021 08:04:57 [id number] CATHERINE Rivera [facility] [place] [address] [facility] [address] [place] [address] 07/21/2022 00:00:00 07/21/2022 12:35:35 [id number] Tyrone Robles MD [facility] Primary [place] [address] [place] [address] [address] [place] [address] 10/05/2022 00:00:00 10/05/2022 18:49:31 [id number] CATHERINE Rivera [facility] [place] [address] [place] [address] [address] [place] [address] 10/29/2022 00:00:00 10/29/2022 08:28:27 [id number] CATHERINE Rivera [facility] Primary [place] [address] [place] [address] [address] [place] [address] 11/12/2022 00:00:00 11/12/2022 08:24:40 [id number] Tyrone Robles MD [facility] [place] [address] [place] [address] [address] [place] [address] 03/15/2023 08:28:53 03/15/2023 08:51:44 Pain of left knee joint 0022173302 69898 M25.562 Injection into left knee, pt. tolerated well. Consent form signed.Pt. is aware of signs/symp toms of infection. [id number] GISELE Uribe-Shirley [facility] Primary [facility] [place] [address] [facility] [address] [place] [address] 04/26/2023 07:53:58 04/26/2023 08:35:37 Pain of left knee joint 6686596194 48603 M25.562 Has been a recurrent issue for this pt. Xray positive for degenerati ve changes. Has not had relief from 2nd steroid injection in March. Does not like to take medication s. Would like to try ortho referral. [id number] Ajit Holder MD [address] [address] 05/03/2023 08:58:45 05/03/2023 09:43:51 Pain of left knee joint 1953586251 57866 M25.562 Osteoarthr itis of left knee joint 9731203509 34475 M17.12 [id number] Ajit Holder MD [address] [address] 05/31/2023 09:06:41 05/31/2023 09:36:46 Pain of left knee joint 1661180359 91304 M25.562 Osteoarthr itis of left knee joint 7121349002 46455 M17.12 [id number] Ajit Holder MD [address] [address] 06/28/2023 08:54:12 06/28/2023 09:19:30 Osteoarthritis of left knee joint 8768130338 26084 M17.12 [id number] Tyrone Robles MD [facility] [place] [address] [place] [address] 09/23/2023 10:53:45 09/23/2023 11:40:43 [id number] Jose Rich MD [address] [address] 10/25/2023 09:24:18 10/25/2023 10:38:48 Osteoarthritis of left knee joint 8806356954 42119 M17.12 Pain of le ft knee joint 0582298946 12513 M25.773 [id number] Danny Pollard MD [facility] [address] 12/05/2023 12:13:16 12/05/2023 13:31:29 Osteoarthritis of left knee joint 5612011576 52196 M17.12 [id number] MONSE Uribe [facility] [place] [address] [place] [id number] 03/08/2024 07:55:34 03/08/2024 08:36:27 Adult health examination [id number] Z00.00 Screening for disorder [id number] Z13.9 Diabetes m ellitus screening [id number] Z13.1 Hyperlipid emia screening [id number] Z13.220 Thyroid di sorder screening [id number] Z13.29 Anemia screening [id number] Z13.0 Administra tion of tetanus vaccine [id number] CATHERINE Boateng [facility] Primary Care [facility] [address] [place] [address] 05/22/2024 15:28:39 05/22/2024 15:52:17 Health Concerns Section Related Observation LastModified by Organization Detai ls LastModified Time None Recorded Concern Status LastModified by Organization Details LastModified Time None Recorded Advance Directives Directive N: Packet of information Payers Insurance Date Sequence Insurance Name Policy Number Policy Conrad Covered Member ID Conrad Member ID Guarantor Name 05/22/2024 1 [facility] (MEDICARE REPLACEMENT/A DVANTAGE - HMO) [id number] Grecia Salazar [id number] Grecia Myrick Martin 05/22/2024 2 [employer] ( - MEDICARE SUPPLEMENT) Grecia Salazar [id number] Grecia Salazar OBGyn Episode No OBEpisode recorded.
[2025-05-07] MEDS: LACTATED RINGERS 1,000 ML 30 ML IV CONT ×2 (06:40→11:33)
[2025-05-07] MEDS: VANCOMYCIN 1,250 MG/NS 250 ML 1,250 MG/250 ML BAG 166.67 MG IVPB (06:40)
[2025-05-07] MEDS: TRANEXAMIC ACID 1,000MG/ISO100 1,000 MG/100 ML BAG 200 MG IVPB (06:40)
[2025-05-07] MEDS: ACETAMINOPHEN 500 MG TABLET 1000 MG PO (06:40)
--- NOTE | 2025-05-07 07:16 | WPDHPUPDATE1 ---
History and Physical Update Update Date/Time: 05/07/25 07:16 History and Physical has been reviewed, including an updated exam of the patient. There are NO changes in the patient's condition. Risks, benefits, and alternatives have been discussed and questions answered. Patient agrees to proceed with procedure.
--- NOTE | 2025-05-07 07:24 | WPDANESEPPF ---
Anes - Initial Pre Proc Eval Procedure: Operation Date: 05/07/25 07:30 Proposed Procedures p Left Total Knee Arthroplasty, Screw Removal Left Tibia - Jose Rich MD Date/Time: 05/07/25 07:24 Surgeon: Jose Rich MD Pre Op Diagnosis: O A Lt Knee, Hx of ORIF Lat Plateau Patient Data Age: 69 Gender: F Height: 1.63 m Weight: 86.4 kg Last Vital Signs Temp 97.9 F 05/07/25 06:40 Pulse 64 05/07/25 06:40 Resp 14 05/07/25 06:40 BP 120/78 05/07/25 06:40 Pulse Ox 98 05/07/25 06:40 O2 Del Method Room Air 05/07/25 06:40 Allergies Allergy/AdvReac Type Severity Reaction Status Date / Time No Known Allergies Allergy Unknown Verified 05/07/25 07:00 Home Medications ?Medication ?Instructions ?Recorded ?Confirmed ?Type atorvastatin 10 mg tablet 10 mg PO QPM 04/18/25 05/07/25 History Laboratory Tests 05/07/25 06:26 Blood Type A Positive Antibody Screen Negative Patient hx anesthesia problems: none Family hx anesthesia problems: none Results Review: All pre-operative results and documents have been reviewed as part of the pre-operative evaluation. [facility] Past Medical History Medical History Overweight Surgical History Surgical History History of 2 sections History of knee surgery left Family History Family History Father Cerebrovascular accident Social History Social History Smoking status: Never smoker Second hand tobacco smoke exposure: Yes Alcohol intake: current Alcohol use details: 2 per month Substance use: never Do You Feel Safe in your Home?: Yes Lack of Transportation: No Lack of Food: Never True Current Housing: I Have Housing Concerned About Future Housing: No Difficulty Paying Gas/Electric Bills: No Difficulty Paying for Meds: No Currently Unemployed: No Education: Associate Degree Difficulty w/ Childcare or Family Care: No Living arrangements: with family Additional living arrangements comments: Spiritual care concerns: No Anes - Eval Final PreProcedure Day of Procedure 05/07/25 07:24 Patient weight: obese Heart: regular rate and rhythm Lungs: clear to auscultation Airway: Mallampati scale class II Neurological: alert and oriented Last oral intake: >/= 8 hours ASA classification: III Emergent: no Anesthetic plan: proceed Anesthesia type and monitoring: general ETT and standard monitoring Results Review: All pre-operative results and documents have been reviewed as part of the pre-operative evaluation. Informed Consent: The patient's anesthetic plan and its attendant risks and benefits were discussed with the patient/family/POA. Questions were solicited and answers provided to the satisfaction of the patient/family/POA.
[2025-05-07] MEDS: ceFAZolin 2 GM in SODIUM CHLORIDE 0.9% IV 50 ML 100 ML IVPB (07:39)
[2025-05-07] MEDS: SODIUM CHLORIDE 0.9% IV 37.7 ML, MORPHINE SULFATE INJ (*CRX) 2 MG, ROPivacaine HCL 1% 2... INFILTRATE (08:09)
[2025-05-07] MEDS: GENTAMICIN BONE CEMENT REFOBACIN 1 EACH TOPICAL (10:05)
[2025-05-07] MEDS: TRANEXAMIC ACID 1,000 MG/10 ML AMPUL 1000 MG IV PUSH (10:27)
[2025-05-07] MEDS: KETOROLAC 15 MG/ML VIAL (*BKC) IV PUSH ×2 (10:27→16:15)
--- NOTE | 2025-05-07 11:40 | W.PM.PROC2 ---
Procedure Note - Detailed Date of Procedure 05/07/25 Pre-op Diagnosis O A Lt Knee, Hx of ORIF Lat Plateau fx Post-op Diagnosis Same Procedure Performed Removal 2 cannulated screws and washers from lateral tibial plateau, total knee arthroplasty left knee Surgeon Jose Rich MD Head Grinder Armand is a his Anesthesia General Description of Procedure patient was brought to the operating room and general anesthesia was administered. She received 2 g of Ancef weight based vancomycin 1 g of TXA preoperatively. The left leg was prepped draped in the usual fashion. Under anesthesia there is still a 10 degree flexion contracture and gravity flexion limited to 110? passively to 120. Limb was exsanguinated tourniquet elevated to 300 mmHg. The central 2 cm of the previous lateral longitudinal incision we used and this brought us down onto the more anterior screw head. This was a 6.5 cannulated screw which was removed without difficulty and the washer was easy to remove as well. We identified the 2nd screw posterior to the 1st screw and removed this screw and washer without difficulty. There was no granulation tissue on the screws and the screw purchase was still very good. No signs of infection clinically. A 7 in longitudinal midline incision was then used and a standard median parapatellar arthrotomy utilized. Partial excision of infrapatellar fat pad performed a quadriceps synovectomy carried out. Suprapatellar fat pad excised. The patella had intact articular cartilage. Had some osteophytes which were trimmed and a limited lateral facetectomy was performed. Next a guide ruel was inserted on femoral canal after aspiration of canal contents using the 5 degree valgus cutting bushing 9 mm of bone removed the distal femur. The tibial plateau was cut utilizing a skim cut just under the low point of the medial tibial plateau where there was sclerosis and grooving due to bone wear. Meniscal remnants were excised and the PCL was Released from the posterior femur. Flexion gap measured 2 mm laterally 9 mm medially therefore an additional 2 mm of bone was removed from the tibial plateau. The femoral sizing guide was applied to the distal femur set at 3? of external rotation which matched [place] line. Posterior referencing pinholes were placed. The femur was cut to a size 62.5 which fit line to line medial to lateral and rested on the anterior cortex. The tibia was sized to a 71 which fit line to line anteromedial to posterolateral at proper rotation. We saw that there was a substantial un contained defect of the anterolateral tibial plateau where the cortical screw was apparently countersunk below the surface of the geo lateral metaphysis in that area. The bone of the lateral plateau was also very osteopenic as were areas of the distal femur and we will research whether patient has had a bone density test at [facility] and if not she should have 1. We trialed with the 10 insert. This was tight medially in flexion and extension and we lacked full extension. The protruding medial tibial plateau osteophyte was carefully removed. We avoided release of medial capsule since she did not have a significant varus deformity before surgery. With the trial femur in place we removed large posterior femoral osteophytes. At this time trialing with the 10 insert the medial side open 2 mm at 90? lateral side 1 mm anterior posterior drawer was 2-3 mm. In extension there was lack of 2 or 3? of extension with only 0.5 mm plate medially versus 2-3 mm laterally. I assessed the alignment of the distal femoral cut which appear to be 5.5? of valgus with 5 degree wing on the intramedullary ruel. The tibia was aligned peripherally perpendicular to the axis of the tibia. I elected to reapplied the tibial cutting guide and by using the same slot cut another mm of bone from the medial femoral condyle distal aspect and transition this to lateral side and with the 5 degree ruel we can see that we were about 4.5? of valgus now. The AP cutting block was applied chamfer is revisited. Posterior central capsular release from the posterior femur was additionally performed. Due to the soft bone in the lateral plateau and uncontained bony defect in the anterior aspect of the lateral margin of the tibial plateau which was under the component, I felt it would be best to use an 80 mm cemented stem to reduce risk of subsidence. We reapplied the appropriate tibial tray trial through which we punched with the longer intramedullary thin ruel punch 10 mm diameter and we seated the 80 mm by 10 mm finned stem assembled to the 71 mm tray . With this done the knee on trialing with the 10 came out to full extension with 2 mm medial and 2 mm lateral opening negative bounce appropriate stability anterior industrial training specialist all positions. With the arthrotomy towel clipped the knee still came out to full extension with about 1 mm medial opening And negative bounce. gravity flexion was now to 125 degrees and central patellar tracking. At this time the limb was re-exsanguinated tourniquet elevated to 300 mmHg. It was lowered earlier at just under 90 minutes. Lug holes were made for the femoral component. Step drill was used to make perforations in the more dense bone of the medial tibial plateau and distal femur. I used cancellous bone autograft from the chamfer cuts and packed these into the bony defect left by the removal of the cannulated screws at the lateral margin of the lateral tibial plateau. I did this because it was clear that cement would extrude and track down this opening in the bone margin and might prove difficult to remove from the more distal aspect of the lateral tibial plateau without extending lateral incision which I wanted to avoid.Bony surfaces were thoroughly irrigated and dried. Using 2 batches of methylmethacrylate 1 with gentamicin powder the cement was applied the tibial component and size 71 with 10 mm x 80 mm finned stem attached and the size 62.5 left CR femoral component. Cement applied the tibial plateau and in to the intramedullary canal of the tibial component fully seated. Cement applied the femur the femoral component fully seated the knee brought into extension with 11 mm 5 in 1 insert for cement pressurization. Tourniquet was released. Two additional g of Ancef 1 g TXA administered. after cement hardening excess cement was sought for removed and hemostasis confirmed. We trialed with the 10 insert which gave the same range of motion stability findings discussed above. The real 10 mm insert was placed locked with a locking pin range of motion stability patellar tracking reconfirmed. Local anesthetic cocktail was injected the periarticular soft tissues. The 2 cm lateral incision was carefully repaired in layers with 2-0 Vicryl. The scar tissue allowed us to tighten the approximate a deep subcutaneous fat layer which was scarred from the previous incision and Seemed to get a watertight closure of this deeper layer of subcu fat. The arthrotomy was closed with 2. Vicryl and 1. Unidirectional barbed Stratafix suture. after closure there was full extension with negative bounce and gravity flexion 125?. The skin of both incisions was closed with To a subcutaneous Vicryl and 3-0 subcuticular Monocryl and glue. Patient was transferred postop recovery room stable doors. EBL less than 200 cc. No known complications. [facility] Billing Surgery - Charge Forward: Surgery Billing ( Removed 2 cannulated screws left tibia and left total knee arthroplasty)
--- NOTE | 2025-05-07 11:46 | PM.OP ---
Procedure Note - Brief Procedure Note - Brief Date of procedure: 05/07/25 O A Lt Knee, Hx of ORIF Lat Plateau Procedure performed: Removal cannulated screws left lateral plateau and left total knee arthroplasty Surgeon: CATHERINE Salmon Findings: 69-year-old female underwent the above-stated procedure on 05/07. I was involved in the procedure including positioning patient to 1st assisting through the time surgery. Total time spent was 3-1/2 hours
[2025-05-07] MEDS: fentaNYL CITRATE INJ (*CRX) 100 MCG/2 ML VIAL 25 MCG IV PUSH (12:29)
--- NOTE | 2025-05-07 12:54 | ADMGEN ---
This patient, Grecia Salazar, was admitted to [facility] Surg Room 323-01. Patient/family oriented to hospital policies and general routines including ID bracelet, bed and alarms, visiting hours, pain management, procedures, bathroom and other care routines, personal items, smoking policy, room service/diet, and visiting hours. Information on how to activate the Rapid Response Team has been discussed. Patient/Family are encouraged to report perceived risks to care and to ask questions if they do not understand what they are told or what they should do. received report from Ericka.
[2025-05-07] MEDS: ACETAMINOPHEN 325 MG TABLET 650 MG PO ×3 (13:17→22:02)
[2025-05-07] MEDS: ceFAZolin 2 GM/D5W 50 ML 2 GM/50 ML BAG IVPB ×2 (13:18→22:02)
[2025-05-07] MEDS: oxyCODONE HCL (*CRX) 5 MG TAB IR PO ×3 (13:18→22:02)
[2025-05-07] MEDS: SODIUM CHLORIDE 0.9% IV 1,000 ML 125 ML IV CONT (13:18)
[2025-05-07] MEDS: ONDANSETRON INJ 4 MG/2 ML VIAL IV PUSH ×2 (16:15→22:37)
[2025-05-07] MEDS: SENNA/DOCUSATE SODIUM TABLET 2 TAB PO (16:16)
[2025-05-07] MEDS: CALCIUM CITRATE 315 MG/VITAMIN D 6.25 MCG (250 UNITS) TAB 1 TABLET PO (16:17)
[2025-05-07] MEDS: ATORVASTATIN 10 MG TABLET PO (18:01)
[2025-05-07] MEDS: VANCOMYCIN HCL 1,000 MG in SODIUM CHLORIDE 0.9% IV 250 ML 120 MG IVPB (18:07)
[2025-05-07] MEDS: FAMOTIDINE 20 MG TABLET PO (22:01)
[2025-05-08] MEDS: oxyCODONE HCL (*CRX) 5 MG TAB IR PO ×4 (00:30→13:09)
[2025-05-08] MEDS: KETOROLAC 15 MG/ML VIAL (*BKC) IV PUSH (00:30)
[2025-05-08 02:24] VITALS: BP 98/61; PULSE 96; RESP 20; TEMP 36.9; O2SAT 96
[2025-05-08] MEDS: ACETAMINOPHEN 325 MG TABLET 650 MG PO ×3 (02:59→13:09)
[2025-05-08] MEDS: ceFAZolin 2 GM/D5W 50 ML 2 GM/50 ML BAG IVPB (05:55)
[2025-05-08 06:24] VITALS: BP 93/54; PULSE 67; RESP 18; TEMP 36.5; O2SAT 97
[2025-05-08 06:31] LABS: Hematocrit 33.8 % (37.0-47.0); Hemoglobin 11.2 g/dL (12.0-15.0); Immature Granulocyte Percent A 0.6 % (0-0.5); Lymphocytes Absolute Auto 1.19 K/mm3 (0.9-3.2); Mean Corpuscular HGB Conc 33.1 g/dl (32-36); Mean Corpuscular Hemoglobin 29.8 pg (26-34); Mean Corpuscular Volume 89.9 fl (80-100); Nucleated Red Blood Cells Absolute Auto 0.000 K/mm3 (0.0-0.012); Nucleated Red Blood Cells Perc 0.0 % (0.0-0.2); Platelet Count Result 195 k/mm3 (150-375); Red Blood Count 3.76 M/mm3 (4.2-5.4); White Blood Count 15.5 K/mm3 (4.5-10.0)
[2025-05-08] MEDS: ONDANSETRON INJ 4 MG/2 ML VIAL IV PUSH (06:45)
[2025-05-08] MEDS: VANCOMYCIN HCL 1,000 MG in SODIUM CHLORIDE 0.9% IV 250 ML 125 MG IVPB (06:45)
[2025-05-08 06:56] LABS: Anion Gap 7 mmol/L (4-12); Blood Urea Nitrogen 17 mg/dL (7-17); Calcium 8.8 mg/dL (8.4-10.2); Carbon Dioxide 22 mmol/L (22-30); Chloride 106 mmol/L (98-107); Estimated CRCL calculation 49 ml/min; Estimated Glomerular Filt Rate 54; Glucose 117 mg/dL (65-110); Potassium 4.4 mmol/L (3.4-5.0); Sodium 135 mmol/L (137-145)
--- NOTE | 2025-05-08 07:33 | P.PNOP_ITS ---
Subjective Subjective Date/Time Seen: 05/08/25 07:33 Interval history: Postop day 1 patient is alert. She is afebrile vital signs are stable. Morning labs are noted. Her vitamin D is at the very low end of normal. She was placed on calcium and vitamin-D and we will give her additional weekly doses of vitamin D as well. Overall pain is well controlled. Patient was having some nausea last night in little bit this morning. I will give her dose of Decadron this morning hopefully that will help that. Patient's dressing is dry and intact. She was not seen by therapy yesterday. She has been up to the restroom overnight and urinating well. Patient will work with therapy this morning and once IV antibiotics have been completed and she continues to be doing well she will be discharged home late this morning. Objective Data Vital Signs Vital Signs: Vital Signs - 24 hr 05/07/25 11:33 05/07/25 11:45 05/07/25 12:00 Temperature 99.2 F Pulse Rate 71 78 76 Respiratory Rate 12 12 12 Blood Pressure 103/65 109/66 112/67 Pulse Oximetry 97 99 100 Oxygen Delivery Simple Face Mask Simple Face Mask Simple Face Mask Oxygen Flow Rate 6 6 6 05/07/25 12:09 05/07/25 12:15 05/07/25 12:30 Temperature 97.4 F L Pulse Rate 75 73 Respiratory Rate 12 14 Blood Pressure 108/60 108/59 L Pulse Oximetry 95 94 Oxygen Delivery Room Air Room Air Room Air Oxygen Flow Rate 05/07/25 12:45 05/07/25 13:00 05/07/25 13:15 Temperature 97.1 F L 96.8 F L Pulse Rate 76 70 Respiratory Rate 18 18 Blood Pressure 110/64 110/64 Pulse Oximetry 99 98 Oxygen Delivery Room Air Oxygen Flow Rate 05/07/25 13:40 05/07/25 13:45 05/07/25 14:04 Temperature 97.6 F Pulse Rate 69 Respiratory Rate 16 Blood Pressure 112/70 Pulse Oximetry 99 Oxygen Delivery Room Air Room Air Oxygen Flow Rate 05/07/25 15:57 05/07/25 18:24 05/07/25 20:00 Temperature 97.8 F Pulse Rate 67 67 Respiratory Rate 18 18 Blood Pressure 104/59 L Pulse Oximetry 99 97 97 Oxygen Delivery Room Air Room Air Oxygen Flow Rate 05/07/25 22:06 05/08/25 02:24 05/08/25 06:24 Temperature 98.5 F 97.7 F Pulse Rate 96 67 Respiratory Rate 20 18 Blood Pressure 98/61 L 93/54 L Pulse Oximetry 97 96 97 Oxygen Delivery Room Air Oxygen Flow Rate Intake/Output Intake/Output: Intake & Output 05/05/25 05/06/25 05/07/25 05/08/25 23:59 23:59 23:59 23:59 Intake Total 600 Output Total 200 Balance 400 Meds/Results Medications: Active Medications Generic Name Dose Route Start Last Admin Trade Name Freq PRN Reason Stop Dose Admin Acetaminophen 650 mg 05/07/25 14:00 05/08/25 05:55 Acetaminophen 325 Mg Tablet PO 650 mg Q4H MYA Administration Apixaban 2.5 mg 05/08/25 09:00 Apixaban 2.5 Mg Tablet PO 05/19/25 21:01 Q12HR MYA Atorvastatin Calcium 10 mg 05/07/25 18:00 05/07/25 18:01 Atorvastatin 10 Mg Tablet PO 10 mg QPM MYA Administration Calcium Citrate 1 tablet 05/07/25 17:00 05/07/25 16:17 Calcium Citrate 315 Mg/Vitamin D 6.25 Mcg (250 Units) Tab PO 1 tablet BID MYA Administration Celecoxib 200 mg 05/08/25 08:00 Celecoxib 200 Mg Capsule PO DAILY@0800 MYA Diphenhydramine HCl 25 mg 05/07/25 12:39 Diphenhydramine Hcl Inj 50 Mg/Ml Vial IV PUSH Q6H PRN Itching Doxycycline Hyclate 100 mg 05/08/25 09:00 Doxycycline Hyclate 100 Mg Tablet PO Q12HR MYA Famotidine 20 mg 05/07/25 21:00 05/07/25 22:01 Famotidine 20 Mg Tablet PO 20 mg Q12HR MYA Administration Vancomycin HCl 1,000 mg/ 250 mls @ 250 mls/hr 05/07/25 19:00 05/08/25 06:45 Sodium Chloride IVPB 05/08/25 07:59 125 mls/hr Q12H MYA Administration Morphine Sulfate 2 mg 05/07/25 12:39 Morphine Sulfate (*Crx) 2 Mg/Ml Inj IV PUSH Q2H PRN Breakthrough Pain Rated 4-6 or NPO Naloxone HCl 0.1 mg 05/07/25 12:39 Naloxone Hcl 0.4 Mg/Ml Vial IV PUSH Q2M PRN Opiate Reversal Ondansetron HCl 4 mg 05/07/25 12:39 05/08/25 06:45 Ondansetron Inj 4 Mg/2 Ml Vial IV PUSH 4 mg Q4H PRN Administration Nausea And Vomiting Oxycodone HCl 5 mg 05/07/25 13:00 05/08/25 05:55 Oxycodone Hcl (*Crx) 5 Mg Tab Ir PO 5 mg Q4H MYA Administration Oxycodone HCl 5 mg 05/07/25 12:39 Oxycodone Hcl (*Crx) 5 Mg Tab Ir PO Q4H PRN Pain Rated 7-10 Polyethylene Glycol 17 gm 05/08/25 09:00 Polyethylene Glycol 3350 17 Gm Powd.Pack PO QAM MYA Senna/Docusate Sodium 2 tab 05/07/25 17:00 05/07/25 16:16 Senna/Docusate Sodium Tablet PO 2 tab BID MYA Administration Radiology Results: ITS Impressions Knee X-Ray 05/07/25 11:37 IMPRESSION: 1. Recent left total knee arthroplasty and patellar resurfacing. Labs Labs: Laboratory Results - last 24 hr 05/08/25 06:15 WBC 15.5 H RBC 3.76 L Hgb 11.2 L D Hct 33.8 L MCV 89.9 MCH 29.8 MCHC 33.1 RDW 12.4 Plt Count 195 MPV 10.1 Immature Gran % (Auto) 0.6 H Neut % (Auto) 85.5 H Lymph % (Auto) 7.7 L [place] % (Auto) 5.9 Eos % (Auto) 0.0 Baso % (Auto) 0.3 Lymph # (Auto) 1.19 [place] # (Auto) 0.9 H Eos # (Auto) 0.0 Baso # (Auto) 0.0 Abs Immat Gran (auto) 0.10 H Absolute Neuts (auto) 13.2 H Absolute Nucleated RBC 0.000 Nucleated RBC % 0.0 Sodium 135 L Potassium 4.4 Chloride 106 Carbon Dioxide 22 Anion Gap 7 BUN 17 Creatinine 1.01 H Estim Creat Clear Calc 49 Estimated GFR 54 L Glucose 117 H Calcium 8.8 Vitamin D 25-Hydroxy 30.6
[2025-05-08] MEDS: SENNA/DOCUSATE SODIUM TABLET 2 TAB PO (08:11)
[2025-05-08] MEDS: FAMOTIDINE 20 MG TABLET PO (08:11)
[2025-05-08] MEDS: CELECOXIB 200 MG CAPSULE PO (08:11)
[2025-05-08] MEDS: CALCIUM CITRATE 315 MG/VITAMIN D 6.25 MCG (250 UNITS) TAB 1 TABLET PO (08:12)
[2025-05-08] MEDS: APIXABAN 2.5 MG TABLET PO (08:12)
[2025-05-08] MEDS: DOXYCYCLINE HYCLATE 100 MG TABLET PO (08:12)
[2025-05-08] MEDS: dexAMETHasone SOD PHOS INJ 10 MG/ML 1 ML VIAL IV PUSH (08:13)
--- NOTE | 2025-05-08 09:33 | PC.NURSE ---
Notified Dr. Rich that patient vomited after breakfast. Dr. Rich told this nurse to hold off on discharge until after patient successfully holds lunch down. If patient vomits after lunch this nurse is to notify Dr. Rich for further instructions regarding discharge
[2025-05-08 10:24] VITALS: BP 94/61; PULSE 64; RESP 16; TEMP 36.4; O2SAT 96
== END 2025-05-08 14:05 | disposition home or self-care (01) ==
LOC: ANHSURGERY 05:55 → ANH3MEDSUR 12:46
PROVIDERS: Physician Assistant Surgical; PCP Internal Medicine; Visit Provider Orthopaedic Surgery
PROC: (CPT 27447; principal; 2025-05-07 07:30)
DX: T84.84XA Pain due to internal orthopedic prosthetic devices, implants and grafts, initial encounter (principal); M17.12 Unilateral primary osteoarthritis, left knee; M25.762 Osteophyte, left knee; Y83.1 Surgical operation with implant of artificial internal device as the cause of abnormal reaction of the patient, or of later complication, without mention of misadventure at the time of the procedure; E66.9 Obesity, unspecified; Z68.32 Body mass index [BMI] 32.0-32.9, adult; Z98.890 Other specified postprocedural states
CPT/HCPCS: 27447; 20680; 36415; 73560; 80048; 82306; 85025; 86850; 86900; 86901; 97110; 97161; 97165; 97530; 97535; J0690; A9270; C1713; C1776; J0166; J0330; J1100; J1885; J2003; J2250; J2270; J2405; J2704; J2795; J3010; J3373; J7030; J7050; J7120

== ENCOUNTER 2025-06-05 11:00 | Outpatient (RCR) | payer MEDICARE, OTHER, SELFPAY ==
--- NOTE | 2025-05-10 13:13 | OPREHPOC ---
Outpatient Therapy Plan of Care This is a Multidisciplinary Plan of Care that may contain components documented by all disciplines (PT, OT, and ST.) PT Problem 1 PT Problem #1 Knowledge Deficit PT Goal 1 Goal / Goal Update [place] with HEP Target Visit 4 PT Goal 2 Goal / Goal Update Report no pain greater than 2/10 for pain management and functional improvement. Target Visit 8 PT Problem 2 PT Problem #2 Impaired Range of Motion PT Goal 1 Goal / Goal Update 1. Achieve 125 degrees of left knee flexion ROM 2. Maintain terminal knee extension through gait pattern for full stride Target Visit 10 PT Problem 3 PT Problem #3 Impaired Strength PT Goal 1 Goal / Goal Update 1. Improve gross left knee strength to 5/5 to improve stability with ADL and gait performance Target Visit 10 PT Goal 2 Goal / Goal Update Improve LEFS score by 30 points to improve gross functional mobility Target Visit 10
--- NOTE | 2025-05-10 13:13 | PTOPEVAL1 ---
Assessment and note entered by Aftab Campbell, PT Evaluation Information Assessment Status Evaluation Diagnosis Left total knee Arthroplasty ICD-10 Condition Codes (PT) Pain in left knee M25.562 Onset 05/07/25 Subjective Information Reports that since surgery her biggest complaints have been swelling and soreness. States that she is having a lot of trouble with swelling and discomfort with swelling. States that she has pain medication but she has not been taking it much due to fear of addiction. She has been trying to get up and move around but has been sore and probably not as much as she should. Educated her on the need for pain medication use to stay ahead of pain. Reported Pain Level Pain Score 9: Self Report Assessment PT Clinical Summary Patient presents with signs and symptoms consistent with post operative total knee arthroplasty. She has edema, loss of ROM specifically in flexion, and weakness of lower kinematic chain resulting in gait deficits. Patient will benefit from skilled therapy to address these deficits to restore functional mobility and pain relief. We had a long discussion bout use of pain medication to stay on top of pain, patient was reluctant due to fear of constipation. Spouse was opposed to her taking them. Plan of Care Interventions Gait Training,Manual Therapy,Neuro Re-education, Therapeutic Activities,Therapeutic Exercise PT Services Indicated Yes Treatment Frequency and 2x/week for 10 visits Duration These treatments will address the objective and functional deficits as defined above. The patient will be advanced safely and appropriately in order for the patient to progress towards his/her prior level of function. Additional exercises will be introduced and as well as a comprehensive home exercise program upon discharge, if needed, ?to ensure carryover of functional gains achieved in the clinic. This treatment plan has been reviewed and agreement upon by the patient.
--- NOTE | 2025-06-05 11:42 | OPREHPOC ---
Outpatient Therapy Plan of Care This is a Multidisciplinary Plan of Care that may contain components documented by all disciplines (PT, OT, and ST.) PT Problem 1 PT Problem #1 Knowledge Deficit PT Goal 1 Goal / Goal Update [place] with HEP 06-05-25 d/c goal met Target Visit 4 Progress Met PT Goal 2 Goal / Goal Update Report no pain greater than 2/10 for pain management and functional improvement. 06-05-25 d/c goal not met, pain at worst of 4/10 Target Visit 8 Progress Not Met PT Problem 2 PT Problem #2 Impaired Range of Motion PT Goal 1 Goal / Goal Update 1. Achieve 125 degrees of left knee flexion ROM 2. Maintain terminal knee extension through gait pattern for full stride 06-05-25 d/c goal met Target Visit 10 Progress Met PT Problem 3 PT Problem #3 Impaired Strength PT Goal 1 Goal / Goal Update 1. Improve gross left knee strength to 5/5 to improve stability with ADL and gait performance 06-05-25 d/c goal not met 4+/5 Target Visit 10 Progress Not Met PT Goal 2 Goal / Goal Update Improve LEFS score by 30 points to improve gross functional mobility 06-05-25 d/c goal met Target Visit 10 Progress Met
--- NOTE | 2025-06-05 11:42 | PTOPDC ---
Assessment and note entered by Malaika Liu, PT Assessment Status Discharge Diagnosis Left total knee Arthroplasty ICD-10 Condition Codes (PT) Pain in left knee M25.562 Onset 05/07/25 Subjective Information knee is doing well, back to working--few hours at [employer]; stairs still kind of hard to do- is going to basement for laundry; doing all the exercises at home; sometimes at night, have problems getting knee comfortable; have been walking more- able to make it around the block; Reported Pain Level Pain Score Self Report Additional Pain Score Comments pain range of 1-4/10 in the past week; increase pain: more walking and activity; standing /walking tolerance 30 minutes decrease pain: sit, rest, tylenol PRN Assessment PT Clinical Summary Grecia has received 8 PT sessions. Today reports pain range of 1-4/10; standing/ walking activity tolerance of 30 minutes; active ROM in sitting 0-130'; gross strength of L knee and hip 4+/5; good gait pattern without assistive device, is using cane PRN; on stairs, single step pattern used without hand railing and with hand railing- alternate step pattern; LE functional scale self rating of 45% limitation in activity level; education completed with HEP. The goals were partially met. Discharge PT. She is to continue with her HEP and increase activity as tolerated, monitoring her pain and swelling of knee. Plan of Care PT Services Indicated No
== END 2025-06-05 16:32 | disposition home or self-care (01) ==
LOC: ANHPT 11:00
PROVIDERS: PCP Internal Medicine; Visit Provider Orthopaedic Surgery
DX: M17.12 Unilateral primary osteoarthritis, left knee (principal); Z96.652 Presence of left artificial knee joint
CPT/HCPCS: 97110; 97116; 97140; 97161; 97530

== ENCOUNTER 2025-07-03 09:59 | Outpatient (CLI) | payer MEDICARE, OTHER, SELFPAY ==
--- NOTE | ~2025-07-03 | DEXA_ITS ---
Bone Density Report Name: ALVARO DANGELO Age: 69 Sex: Female Ethnicity: White Date of : 1955 Indication: postmenopausal; screening for osteoporosis; height loss; Referring Provider: YORDAN HERNANDEZ Study: Bone densitometry was performed. Exam Date: July 03, 2025 Accession number: [id number] Bone Density: Region BMD T-score Z-score Classification AP Spine(L1-L4) 1.014 -0.3 1.8 Normal Femoral Neck (Left) 0.710 -1.3 0.5 Osteopenia Total Hip (Left) 0.890 -0.4 1.1 Normal Femoral Neck (Right) 0.710 -1.2 0.5 Osteopenia Total Hip (Right) 0.867 -0.6 0.9 Normal Total Hip Mean 0.878 -0.5 1.0 Normal World Health Organization criteria for BMD impression classify patients as: Normal (T-score at or above -1.0), Osteopenia (T-score between -1.0 and -2.5), or Osteoporosis (T-score at or below -2.5). 10-year Fracture Risk(1): Major Osteoporotic Fracture 8.8% Hip Fracture 1.0% Reported Risk Factors: [place] (), Neck BMD=0.710, BMI=31.4 (1) FRAX(R) Version 3.08. Fracture probability calculated for an untreated patient. Fracture probability may be lower if the patient has received treatment. Clinical Information Provided by Patient: Has used the following medications: Vitamin D, Calcium Patient maximum height was 65.5 Menopause Age: 50 No regular weight bearing exercise Drinks caffeinated beverages Onset of menses at age 12 Number of children 2 Impression: The patient has low bone mass, based on the Left Femoral Neck T-score. The patient has an estimated ten-year risk of hip fracture of 1% and an estimated ten-year risk of major fracture of 8.8%, based on the WHO FRAX algorithm. Discussion: BONE DENSITY IS LOW AT ONE OR MORE SKELETAL SITES. This patient's lowest T-score is low at one or more skeletal sites. It meets the World Health Organization's (WHO) criteria for ?low bone mass? (T-score between -1.0 and -2.5). The patient's 10-year risk of fracture as calculated by FRAX is less than the threshold where pharmacological therapy is recommended by the National Osteoporosis Foundation (NOF). However, all treatment decisions require clinical judgment and consideration of individual patient factors, including patient preferences, comorbidities, previous drug use, risk factors not captured in the FRAX model (e.g., frailty, falls, vitamin D deficiency, increased bone turnover, interval significant decline in bone density) and possible under or overestimation of fracture risk by FRAX. The patient should follow a healthful lifestyle (good nutrition with adequate calcium and vitamin D, and appropriate weight-bearing exercise). Follow-Up: Consider repeating this study in 2 to 3 years to reassess this patient's status, or sooner if there is some new clinical indication. Reported by: KAZ on 07/03/2025 10:48:00 AM. Reviewed, dictated and finalized at location A.
== END 2025-07-03 10:00 | disposition home or self-care (01) ==
LOC: ANHFOHIMG 10:00
PROVIDERS: PCP Internal Medicine; Visit Provider Orthopaedic Surgery
DX: M81.0 Age-related osteoporosis without current pathological fracture (principal); M85.852 Other specified disorders of bone density and structure, left thigh; M85.851 Other specified disorders of bone density and structure, right thigh
CPT/HCPCS: 77080